=== PATIENT | male | born 1955 | race African-American/Black ===

== ENCOUNTER 2016-12-20 09:54 | Outpatient (CLI) ==
[2016-10-04 11:38] VITALS: BMI 21.1
[2016-12-20 10:19] LABS: ADD URINE MICROSCOPIC NO; BILIRUBIN,URINE Negative (NEGATIVE); KETONES,URINE Trace (NEGATIVE); LEUKOCYTE ESTERASE ,URINE Negative (NEGATIVE); NITRITE,URINE Negative (NEGATIVE); PROTEIN,URINE Negative (NEGATIVE); URINE, BLOOD Negative (NEGATIVE)
== END 2016-12-20 09:55 | disposition home or self-care (01) ==
LOC: LAB 09:54
DX: R35.0 Frequency of micturition (principal)
CPT/HCPCS: 36415; 81001

== ENCOUNTER 2017-01-03 01:35 | Outpatient (CLI) ==
[2017-01-03 02:11] VITALS: BMI 21.7
== END 2017-01-03 01:36 ==
LOC: AMBL 01:35
PROVIDERS: ATTEND Family Medicine
DX: R41.82 Altered mental status, unspecified (principal); R00.0 Tachycardia, unspecified; R25.9 Unspecified abnormal involuntary movements; F10.10 Alcohol abuse, uncomplicated

== ENCOUNTER 2017-01-03 01:49 | Emergency (ER) ==
[2017-01-03] MEDS ORDERED: DEXTROSE 50%-WATER ABBOJECT ONE (02:04)
[2017-01-03 02:11] VITALS: BMI 21.7
[2017-01-03] MEDS ORDERED: DEXTROSE 50%-WATER ABBOJECT IVP ONE (02:11)
[2017-01-03 02:16] LABS: BASOPHILS % (AUTO) 0.3 % (0.0-3.0); HEMATOCRIT 42.1 % (42.0-52.0); HEMOGLOBIN 13.5 g/dl (14.0-18.0); IMMATURE GRANULOCYTE % (AUTO) 0.4 % (0.0-5.0); LYMPHOCYTES # (AUTO) 1.3 K/uL (0.60-3.4); LYMPHOCYTES % (AUTO) 8.2 (10.0-50.0); MEAN CORPUSCULAR HEMOGLOBIN 31.6 pg (27.0-31.0); MEAN CORPUSCULAR HGB CONC 32.1 (31.8-35.4); MEAN CORPUSCULAR VOLUME 98.6 fl (80.0-94.0); MONOCYTES # (AUTO) 0.9 K/uL (0.4-2.0); MONOCYTES % (AUTO) 5.4 (0-10); NEUTROPHILS # (AUTO) 13.6 K/ul (2.0-6.9); NEUTROPHILS % (AUTO) 85.7; PLATELET COUNT 360 10^3/uL (140-440); RED BLOOD COUNT 4.27 10^6/ul (4.70-6.10); WHITE BLOOD COUNT 15.82 K/ul (4.2-10.2)
[2017-01-03] MEDS ORDERED: THIAMINE ONE (02:20)
[2017-01-03] MEDS ORDERED: FOLIC ACID ONE (02:22)
[2017-01-03] MEDS ORDERED: INFUVITE ADULT IV ONE (02:23)
[2017-01-03] MEDS ORDERED: THIAMINE 100 MG, INFUVITE ADULT 10 ML, FOLIC ACID 1 MG in DEXTROSE 5%-NS IV SOLUTION 1,... IV SCH (02:30)
[2017-01-03 02:54] LABS: ABG BASE EXCESS -24 (-2.0-2.0); ABG HCO3 6.2 (22.0-26.0); ABG PCO2 22.6 mmHg (35-45); ABG PH 7.047 (7.35-7.45); ABG TCO2 7 (22.0-28.0)
--- NOTE | 2017-01-03 02:56 | CT ---
EXAM: CT brain without contrast HISTORY: Seizure activity TECHNIQUE: CT of the brain without intravenous contrast FINDINGS: There is no acute hemorrhage midline shift or mass effect. No hydrocephalus or abnormal extra-axial fluid collection. Generalized involutional atrophy, moderate. Chronic microvascular ch anges of the white matter tracts, moderate. No acute large vessel territorial infarct is seen. The bony cranium appears normal. The visualized paranasal sinuses are clear. Soft tissues without signi ficant abnormality. IMPRESSION: 1. Chronic changes as described. No acute intracranial abnormality is seen.
[2017-01-03 03:14] LABS: ALBUMIN 3.7 g/dL (3.4-5.0); ALBUMIN/GLOBULIN RATIO 0.93; ANION GAP 35.7; BILIRUBIN,TOTAL 0.42 mg/dL (0.00-1.20); BUN/CREATININE RATIO 15.29; CALCIUM 8.7 mg/dL (8.2-10.2); CREATININE 1.7 mg/dL (0.60-1.10); POTASSIUM 3.7 mmol/L (3.5-5.1); TOTAL PROTEIN 7.7 g/dL (5.8-8.1)
[2017-01-03] MEDS ORDERED: SODIUM CHLORIDE 1,000 ML IV STA (03:21)
[2017-01-03 03:27] LABS: COCAIN SCREEN,URINE POSITIVE (NEGATIVE)
[2017-01-03 03:45] LABS: TROPONIN I 0.02 ng/ml (0.0000-0.4000)
[2017-01-03 05:19] LABS: ABG BASE EXCESS -13 (-2.0-2.0); ABG HCO3 13.2 (22.0-26.0); ABG PCO2 24.6 mmHg (35-45); ABG PH 7.338 (7.35-7.45); ABG TCO2 14 (22.0-28.0)
[2017-01-03 05:30] VITALS: TEMP 99.6
--- NOTE | 2017-01-03 05:32 | ED.PDOC ---
General ED Provider: Dr. TAYLOR BRIGGS-ER Chief Complaint: Alcohol Intoxication Stated Complaint: jimena been drinking all day and i didnt eat Time Seen by Physician: 01:55 Mode of Arrival: Ambulance Information Source: Patient, EMT Exam Limitations: No limitations Primary Care Provider: GIOVANNI SIDHU Nursing and Triage Documentation Reviewed and Agree: Yes Neurological Complaint Exam - Seizure Complaint/Exam Onset/Duration: one hour Symptoms Are: Resolved Episodes Lasting: Minutes Failed to Regain Consciousness: No Severity: Self-limited Location: All extremities Character: Generalized, Tonic-clonic Aggravating: Reports: Alcohol ingestion Alleviating: Reports: None Associated Signs and Symptoms: Denies: Anxiety, Emotional distress, Impaired speech, Bladder incontinence, Bowel incontinence, Trauma, Illness, Vomiting, Lethargy, Apnea SAH Risk Factors: Reports: None Meningitis Risk Factors: Reports: None SDH Risk Factors: Reports: None Related Surgical History: Reports: None Carotid Bruit Present: No Cephalohematoma Present: No Tongue Bitten: No Neck Pain Present: No Glascow Coma Scale (see protocol): 15 Nystagmus Present: No Gag Reflex Present: Yes Speech: Present: Normal Findings Aphasia: Present: None Meningeal Signs Positive: No Focal Weakness: Present: None Focal Sensory Loss: Reports: None Gait: Normal [id number]: Normal Findings Pronator Drift: Present: None Romberg Test Positive: No Babinski Sign: Negative Right, Negative Left Heel to Toe Normal: Yes Signs of Injury: Present: Normal findings Differential Diagnoses: Metabolic Disorder, Other Review of Systems - Review Of Systems Constitutional: Reports: No symptoms Eyes: Reports: No symptoms Ears, Nose, Mouth, Throat: Reports: No symptoms Respiratory: Reports: No symptoms Cardiac: Reports: No symptoms GI: Reports: No symptoms : Reports: No symptoms Musculoskeletal: Reports: No symptoms Skin: Reports: No symptoms Neurological: Reports: No symptoms Endocrine: Reports: No symptoms Hematologic/Lymphatic: Reports: No symptoms All Other Systems: Reviewed and Negative Past Medical History - Past Medical History Previously Healthy: Yes Endocrine: Reports: None Cardiovascular: Reports: None Respiratory: Reports: COPD Hematological: Reports: None Gastrointestinal: Reports: GERD Genitourinary: Reports: None Neuro/Psych: Reports: None Musculoskeletal: Reports: Joint Pain Cancer: Reports: None Other Pertinent Past Medical History: Alcoholism drinks 1/2 pint every 3 days. - Surgical History General Surgical History: Reports: None - Family History Family History: Reports: None - Social History Smoking Status: Current every day smoker, Heavy tobacco smoker Hx Substance Use: Yes (MARIJUANA) Alcohol Screening: Heavy Lives: With family - Immunizations Tetanus Shot up to Date: No Physical Exam - Physical Exam Appearance: Well-appearing, No pain distress, Well-nourished Eyes: JEREMY ENT: Ears normal, Nose normal, Oropharynx normal Neck: Supple Respiratory: Airway patent Cardiovascular: RRR, Pulses normal, No rub, No murmur GI/: Soft, Nontender, No masses, Bowel sounds normal, No Organomegaly Musculoskeletal: Normal strength, ROM intact, No edema, No calf tenderness Skin: Warm, Dry, Normal color Neurological: Sensation intact, Motor intact, Reflexes intact, Cranial nerves intact, Alert, Oriented Psychiatric: Affect appropriate, Mood appropriate Interpretation - Radiology Interpretation Radiology Interpretation By: Radiologist Radiology Results: Negative Exam Interpreted: CT Scan - EKG Interpretation Time of EKG #1: 05:33 Rate: Normal Rhythm: Sinus Ectopy: None [place]: NL ST Segment: Normal Interpretation: nsr Re-Evaluation - Re-Evaluation Time of Re-Evaluation: 05:53 Status: Improved (sitting up and drinking water--alert and oriented) Vital Signs Stable: Yes Pain Level: 0 Appearance: NAD Lungs: Clear Skin: Warm and Dry Neuro: Alert and Oriented X3 CV: RRR Critical Care Note - Critical Care Note Total Time (mins): 0 Course - Course Hematology/Chemistry: 01/03/17 02:00 01/03/17 02:00 Orders, Labs, Meds: Lab Review 01/03/17 01/03/17 01/03/17 02:00 02:09 02:45 WBC 15.82 H RBC 4.27 L Hgb 13.5 L Hct 42.1 MCV 98.6 H MCH 31.6 H MCHC 32.1 RDW Coeff of Ti 15.5 H Plt Count 360 Immature Gran % (Auto) 0.4 Neut % (Auto) 85.7 Lymph % (Auto) 8.2 L Peach % (Auto) 5.4 Eos % (Auto) 0.0 Baso % (Auto) 0.3 Immature Gran # (Auto) 0.1 Neut # 13.6 H Lymph # 1.3 Peach # 0.9 Eos # 0.0 Baso # 0.0 D-Dimer 0.51 Puncture Site Rb O2 Saturation 90.0 L ABG pH 7.047 L* ABG pCO2 22.6 L ABG pO2 81.0 L ABG HCO3 6.2 L ABG Total CO2 7 L ABG Base Excess -24 L Lawrence Test + FiO2 % 21.0 Sodium 138 Potassium 3.7 Chloride 100 Carbon Dioxide 6 L* Anion Gap 35.7 BUN 26 H Creatinine 1.70 H Estimated GFR (MDRD) 50.00 BUN/Creatinine Ratio 15.29 Glucose 125 H Calcium 8.7 Total Bilirubin 0.42 AST 50 H ALT 32 Alkaline Phosphatase 68 Total Creatine Kinase 168 CK-MB (CK-2) 4.0 H CK-MB (CK-2) % 2.79167 Troponin I 0.0200 Total Protein 7.7 Albumin 3.7 Globulin 4.0 Albumin/Globulin Ratio 0.93 Urine Color Urine Clarity Urine pH Ur Specific [place] Urine Protein Urine Glucose (UA) Urine Ketones Urine Blood Urine Nitrite Urine Bilirubin Urine Urobilinogen Ur Leukocyte Esterase Urine Microscopic RBC Ur Squamous Epith Cells Granular Casts Urine Opiates Screen Ur Oxycodone Screen Urine Methadone Screen Ur Propoxyphene Screen Ur Barbiturates Screen U Tricyclic Antidepress Ur Phencyclidine Scrn Ur Amphetamine Screen U Methamphetamines Scrn U Benzodiazepines Scrn Urine Cocaine Screen U Cannabinoids Screen Plasma/Serum Alcohol 97.5 H 01/03/17 01/03/17 01/03/17 02:52 03:41 05:35 WBC RBC Hgb Hct MCV MCH MCHC RDW Coeff of Ti Plt Count Immature Gran % (Auto) Neut % (Auto) Lymph % (Auto) Peach % (Auto) Eos % (Auto) Baso % (Auto) Immature Gran # (Auto) Neut # Lymph # Peach # Eos # Baso # D-Dimer Puncture Site Lb O2 Saturation 93.0 L ABG pH 7.338 L ABG pCO2 24.6 L ABG pO2 71.0 L ABG HCO3 13.2 L ABG Total CO2 14 L ABG Base Excess -13 L Lawrence Test + FiO2 % 21.0 Sodium Potassium Chloride Carbon Dioxide Anion Gap BUN Creatinine Estimated GFR (MDRD) BUN/Creatinine Ratio Glucose Calcium Total Bilirubin AST ALT Alkaline Phosphatase Total Creatine Kinase CK-MB (CK-2) CK-MB (CK-2) % Troponin I Total Protein Albumin Globulin Albumin/Globulin Ratio Urine Color Yellow Urine Clarity Clear Urine pH 5.0 Ur Specific [place] >=1.030 Urine Protein 1+ Urine Glucose (UA) Negative Urine Ketones 2+ Urine Blood 1+ Urine Nitrite Negative Urine Bilirubin Negative Urine Urobilinogen 0.2 Ur Leukocyte Esterase Negative Urine Microscopic RBC 2-5 Ur Squamous Epith Cells 0-2 Granular Casts 2-5 Urine Opiates Screen Negative Ur Oxycodone Screen Negative Urine Methadone Screen Negative Ur Propoxyphene Screen Negative Ur Barbiturates Screen Negative U Tricyclic Antidepress Negative Ur Phencyclidine Scrn Negative Ur Amphetamine Screen Negative U Methamphetamines Scrn Negative U Benzodiazepines Scrn Negative Urine Cocaine Screen Positive U Cannabinoids Screen Negative Plasma/Serum Alcohol Orders Category Date Time Status ABG DRAW REQUEST Stat CARDIO 01/03/17 02:10 Completed ABG DRAW REQUEST Timed CARDIO 01/03/17 05:00 Completed EKG-(ED ONLY) Stat CARDIO 01/03/17 02:10 Completed ED IV/MEDIPORT/POWERPORT .ONCE EMERGENCY 01/03/17 02:11 Active ABG Stat LAB 01/03/17 02:09 Completed ARTERIAL BLOOD GAS [ABG] Stat LAB 01/03/17 03:41 Completed CBC W/ AUTO DIFF Stat LAB 01/03/17 02:00 Completed COMPREHENSIVE METABOLIC PANEL Stat LAB 01/03/17 02:00 Completed CREATINE KINASE Stat LAB 01/03/17 02:00 Completed D-DIMER Stat LAB 01/03/17 02:45 Completed ETOH LEVEL [BLOOD ALCOHOL] Stat LAB 01/03/17 02:00 Completed TROPONIN I Stat LAB 01/03/17 02:00 Completed URINALYSIS C & S IF INDICATED Stat LAB 01/03/17 05:35 Completed URINE DRUG SCREEN (RAPID FOR ED) [DRUG SCREEN, URINE, LAB 01/03/17 02:52 Completed RAPID] Stat 0.9 % Sodium Chloride [Saline Flush] MEDS 01/03/17 02:11 Ordered 1 syr IVF PRN PRN Dextrose 5 % and 0.9 % NaCl [Dextrose 5%-Ns IV Solution MEDS 01/03/17 02:30 Discontinued ] 1,000 ml Vitamin B-1 Inj [Thiamine] 100 mg Mvi, Adult No.1 with Vit K [Infuvite Adult] 10 ml Folic Acid 1 mg IV 100 mls/hr Dextrose 50 % in Water [Dextrose 50%-Water Abboject] MEDS 01/03/17 02:04 Discontinued 50 ml .ROUTE .STK-MED ONE Dextrose 50 % in Water [Dextrose 50%-Water Abboject] MEDS 01/03/17 02:11 Discontinued 50 ml IVP ONCE ONE Folic Acid MEDS 01/03/17 02:22 Discontinued 5 mg .ROUTE .STK-MED ONE Mvi, Adult No.1 with Vit K [Infuvite Adult] MEDS 01/03/17 02:23 Discontinued 10 ml IV .STK-MED ONE Sodium Chloride 0.9% [Sodium Chloride] 1,000 ml MEDS 01/03/17 03:21 Active IV 125 mls/hr Vitamin B-1 Inj [Thiamine] MEDS 01/03/17 02:20 Discontinued 200 mg .ROUTE .STK-MED ONE CT HEAD W/O CONTRAST Stat RADS 01/03/17 02:10 Completed CXR [CHEST, 1V AP ONLY] Stat RADS 01/03/17 05:29 Taken Medications Generic Name Dose Route Start Last Admin Trade Name Freq PRN Reason Stop Dose Admin Sodium Chloride 1,000 mls @ 125 mls/hr 01/03/17 03:21 Sodium Chloride IV 01/03/17 11:20 .Q8H STA Sodium Chloride 1 syr 01/03/17 02:11 Saline Flush IVF PRN PRN To flush IV Discontinued Medications Generic Name Dose Route Start Last Admin Trade Name Freq PRN Reason Stop Dose Admin Dextrose 50 ml 01/03/17 02:11 01/03/17 02:00 Dextrose 50%-Water Abboject IVP 01/03/17 02:12 50 ml ONCE ONE Administration Thiamine HCl 100 mg/ 1,011.2 mls @ 100 mls/hr 01/03/17 02:30 01/03/17 02:46 Multivitamins/Minerals 10 ml/ IV 100 mls/hr Folic Acid 1 mg/ Dextrose/ .Q10H7M JEREMIAH Administration Sodium Chloride Vital Signs: Temp Pulse Resp BP Pulse Ox 01/03/17 05:51 116 H 20 139/82 96 01/03/17 05:30 99.6 F 01/03/17 01:54 97.7 F 120 H 112 H 121/80 99 Departure - Departure Time of Disposition: 05:53 Disposition: HOME SELF-CARE Discharge Problem: Hypoglycemia Instructions: Non-diabetic Hypoglycemia (ED) Condition: Stable Pt referred to PMD for follow-up: Yes Additional Instructions: eat regular meals--stop etoh--return prn Allergies/Adverse Reactions: Allergies No Known Allergies Allergy (Verified 10/04/16 11:32) Home Medications: Ambulatory Orders Sucralfate [Carafate] 1 gm PO ACHS #40 tablet 05/01/15 Lansoprazole [Prevacid] 30 mg PO DAILY 10/30/15 Albuterol Sulfate [Proair Hfa] 2 puff IH Q4H 10/04/16 Hydrocodone Bit/Acetaminophen [Pender 5-325] 1 each PO ONCE PRN #10 tablet Indomethacin [Indocin] 25 mg PO TIDWM #20 capsule 10/04/16 Ranitidine HCl [Zantac] 150 mg PO BIDAC 10/04/16 Disposition Discussed With: Patient
[2017-01-03 05:45] LABS: BILIRUBIN,URINE Negative (NEGATIVE); KETONES,URINE 2+ (NEGATIVE); LEUKOCYTE ESTERASE ,URINE Negative (NEGATIVE); NITRITE,URINE Negative (NEGATIVE); PROTEIN,URINE 1+ (NEGATIVE); URINE, BLOOD 1+ (NEGATIVE)
[2017-01-03 05:48] LABS: ADD URINE MICROSCOPIC YES
[2017-01-03 05:52] VITALS: BP 139/82
[2017-01-03] MEDS ORDERED: TYLENOL PO STA (06:50)
--- NOTE | 2017-01-03 07:03 | DI ---
Exam: Chest one-view History: Leukocytosis FINDINGS: Normal cardiomediastinal contours. Normal pulmonary vasculature. No infiltrative opacit ies. No acute chest wall abnormality. Impression: No acute cardiopulmonary disease.
== END 2017-01-03 07:06 | disposition home or self-care (01) ==
LOC: ED 01:49
DX: E16.2 Hypoglycemia, unspecified (principal); F10.129 Alcohol abuse with intoxication, unspecified; F17.210 Nicotine dependence, cigarettes, uncomplicated; Z79.899 Other long term (current) drug therapy
CPT/HCPCS: 36415; 80053; 80306; 80307; 81001; 82550; 82553; 82803; 84484; 85025; 85379; 93005; 93010; 96361; 96374; 96375; 99283; 99284

== ENCOUNTER 2017-01-28 10:30 | Emergency (ER) ==
[2017-01-28 10:38] VITALS: BP 126/79; TEMP 97.4; BMI 22.0
--- NOTE | 2017-01-28 10:56 | ED.PDOC ---
General ED Provider: Dr. VINH MARINA JR Chief Complaint: Extremity Swelling/Pain Stated Complaint: complains of pain and swelling to left knee. denies injury. states he has arthritis in it and needs something for pain [End]97.4 108 18 94% 126/79 08/10 Time Seen by Physician: 10:45 Mode of Arrival: Walk-In Information Source: Patient Exam Limitations: No limitations Primary Care Provider: GIOVANNI SIDHU Nursing and Triage Documentation Reviewed and Agree: No Review of Systems - Review Of Systems Constitutional: Reports: No symptoms Eyes: Reports: No symptoms Ears, Nose, Mouth, Throat: Reports: No symptoms Respiratory: Reports: No symptoms Cardiac: Reports: No symptoms GI: Reports: No symptoms : Reports: No symptoms Musculoskeletal: Reports: Joint pain Skin: Reports: No symptoms Neurological: Reports: No symptoms Endocrine: Reports: No symptoms Hematologic/Lymphatic: Reports: No symptoms All Other Systems: Other Past Medical History - Past Medical History Previously Healthy: Yes Endocrine: Reports: None Cardiovascular: Reports: Hypertension Respiratory: Reports: COPD Hematological: Reports: None Gastrointestinal: Reports: GERD Genitourinary: Reports: None Neuro/Psych: Reports: TIA Musculoskeletal: Reports: Arthritis, Joint Pain (oa) Cancer: Reports: None Other Pertinent Past Medical History: Alcoholism drinks 1/2 pint every 3 days. - Surgical History General Surgical History: Reports: Orthopedic ( right knee 2015) - Family History Family History: Reports: None - Social History Smoking Status: Current every day smoker, Heavy tobacco smoker Hx Substance Use: Yes (MARIJUANA) Alcohol Screening: Heavy Physical Exam - Physical Exam Appearance: Well-appearing, Thin Pain Distress: Moderate Eyes: JEREMY, EOMI, Conjunctiva clear ENT: Ears normal, Nose normal, Oropharynx normal Neck: Supple Respiratory: Airway patent, Breath sounds clear, Breath sounds equal, Respirations nonlabored Cardiovascular: RRR, Pulses normal, No rub, No murmur GI/: Soft, Nontender, No masses, Bowel sounds normal, No Organomegaly Musculoskeletal: Normal strength, ROM intact, No edema, No calf tenderness Skin: Warm, Dry, Normal color Neurological: Sensation intact, Motor intact, Reflexes intact, Cranial nerves intact, Alert, Oriented Psychiatric: Affect appropriate, Mood appropriate Critical Care Note - Critical Care Note Total Time (mins): 0 Course - Course Vital Signs: Temp Pulse Resp BP Pulse Ox 01/28/17 10:30 97.4 F L 108 H 18 126/79 94 L Departure - Departure Time of Disposition: 10:57 Disposition: HOME SELF-CARE Discharge Problem: Osteoarthritis of left knee Qualifiers: Osteoarthritis type: primary Qualifier Code: (M17.12) Unilateral primary osteoarthritis, left knee Instructions: Swollen Knee Joint (ED), Knee Pain (ED) Condition: Good Pt referred to PMD for follow-up: Yes Additional Instructions: recommend reevaluation by orthopedics follow up PMD for consultation no evidence of infection return if red increased swelling increased pain or fever over 101.0 Allergies/Adverse Reactions: Allergies No Known Allergies Allergy (Verified 01/28/17 10:36) Home Medications: Ambulatory Orders Sucralfate [Carafate] 1 gm PO ACHS #40 tablet 05/01/15 Lansoprazole [Prevacid] 30 mg PO DAILY 10/30/15 Albuterol Sulfate [Proair Hfa] 2 puff IH Q4H 10/04/16 Indomethacin [Indocin] 25 mg PO TIDWM #20 capsule 10/04/16 Ranitidine HCl [Zantac] 150 mg PO BIDAC 10/04/16 Hydrocodone Bit/Acetaminophen [Prosper 5-325] 1 - 2 tab PO Q6HR PRN #12 tablet
== END 2017-01-28 11:04 | disposition home or self-care (01) ==
LOC: ED 10:30
DX: M17.12 Unilateral primary osteoarthritis, left knee (principal); F17.210 Nicotine dependence, cigarettes, uncomplicated
CPT/HCPCS: 99282

== ENCOUNTER 2017-02-07 12:57 | Emergency (ER) ==
[2017-02-07 13:03] VITALS: TEMP 101.2; BMI 23.7
--- NOTE | 2017-02-07 13:10 | ED.PDOC ---
General ED Provider: Dr. AARTI STANTON Chief Complaint: Cough Stated Complaint: Cough, fever, nausea, vomiting; out of his norco - abdominal pain Time Seen by Physician: 13:00 Mode of Arrival: Ambulance Information Source: Patient Primary Care Provider: GIOVANNI SIDHU Nursing and Triage Documentation Reviewed and Agree: Yes Review of Systems - Review Of Systems Constitutional: Reports: Chills, Fever, Malaise Ears, Nose, Mouth, Throat: Reports: Nose discharge (congestion) Respiratory: Reports: Cough Cardiac: Reports: No symptoms GI: Reports: Nausea All Other Systems: Reviewed and Negative Past Medical History - Past Medical History Previously Healthy: Yes Endocrine: Reports: None Cardiovascular: Reports: Hypertension Respiratory: Reports: COPD Hematological: Reports: None Gastrointestinal: Reports: GERD Genitourinary: Reports: None Neuro/Psych: Reports: TIA Musculoskeletal: Reports: Arthritis, Joint Pain (oa) Cancer: Reports: None Other Pertinent Past Medical History: Alcoholism drinks 1/2 pint every 3 days. - Surgical History General Surgical History: Reports: Orthopedic ( right knee 2015) - Family History Family History: Reports: None - Social History Smoking Status: Current every day smoker, Heavy tobacco smoker Hx Substance Use: Yes (MARIJUANA) Alcohol Screening: Heavy Physical Exam - Physical Exam Appearance: Ill-appearing Ill-appearing: Mild Eyes: JEREMY, EOMI ENT: Oropharynx normal Neck: Supple Respiratory: Airway patent, Breath sounds clear, Breath sounds equal, Respirations nonlabored Cardiovascular: RRR, Pulses normal GI/: Tender (Epigastric tenderness to mild palpation) Skin: Warm, Dry, Normal color Neurological: Alert, Oriented Psychiatric: Affect appropriate, Mood appropriate Interpretation - Radiology Interpretation Radiology Interpretation By: Radiologist Radiology Results: No acute changes Exam Interpreted: Portable CXR Radiology Interpretation By: Radiologist Radiology Results: No acute changes Critical Care Note - Critical Care Note Total Time (mins): 25 Course - Course Hematology/Chemistry: 02/07/17 13:45 02/07/17 13:45 Orders, Labs, Meds: Lab Review 02/07/17 02/07/17 02/07/17 13:15 13:45 14:25 WBC 5.81 RBC 3.98 L Hgb 11.7 L Hct 36.3 L MCV 91.2 MCH 29.4 MCHC 32.2 RDW Coeff of Ti 14.7 Plt Count 335 Immature Gran % (Auto) 0.3 Neut % (Auto) 80.8 Lymph % (Auto) 10.8 Bee % (Auto) 6.7 Eos % (Auto) 0.7 Baso % (Auto) 0.7 Immature Gran # (Auto) 0.0 Neut # 4.7 Lymph # 0.6 Bee # 0.4 Eos # 0.0 Baso # 0.0 Sodium 138 Potassium 3.9 Chloride 101 Carbon Dioxide 26 Anion Gap 14.9 BUN 9 Creatinine 1.08 Estimated GFR (MDRD) 84.00 BUN/Creatinine Ratio 8.33 Glucose 89 Lactic Acid 13.6 Calcium 8.9 Total Bilirubin 0.65 AST 155 H ALT 118 H Alkaline Phosphatase 63 Total Protein 7.5 Albumin 3.6 Globulin 3.9 Albumin/Globulin Ratio 0.92 Procalcitonin < 0.05 Urine Color Yellow Urine Clarity Clear Urine pH 7.5 Ur Specific [place] 1.020 Urine Protein Trace Urine Glucose (UA) Negative Urine Ketones Negative Urine Blood Negative Urine Nitrite Negative Urine Bilirubin Negative Urine Urobilinogen 1.0 Ur Leukocyte Esterase Negative Ur Squamous Epith Cells 0-2 Influenza A (Rapid) Negative Influenza B (Rapid) Negative Orders Category Date Time Status IV ACCESS ONCE CARE 02/07/17 13:07 Active ED APPLY O2 .ONCE EMERGENCY 02/07/17 13:07 Active ED WARP SPINNER APPLIED .ONCE EMERGENCY 02/07/17 13:07 Active BLOOD CULTURE Stat LAB 02/07/17 13:45 Received CBC W/ AUTO DIFF Stat LAB 02/07/17 13:45 Completed COMPREHENSIVE METABOLIC PANEL Stat LAB 02/07/17 13:45 Completed LACTIC ACID Stat LAB 02/07/17 13:45 Completed MOLECULAR GROUP A STREP Stat LAB 02/07/17 13:15 Results PROCALCITONIN Stat LAB 02/07/17 13:45 Completed RAPID FLU A/B Stat LAB 02/07/17 13:15 Completed RAPID STREP SCREEN [STREP SCREEN] Stat LAB 02/07/17 13:15 Results URINALYSIS C & S IF INDICATED Stat LAB 02/07/17 14:25 Completed Sodium Chloride 0.9% [Sodium Chloride] 1,000 ml MEDS 02/07/17 14:26 Discontinued IV BOLUS CHEST, 1V AP ONLY Stat RADS 02/07/17 13:06 Completed Medications Discontinued Medications Generic Name Dose Route Start Last Admin Trade Name Freq PRN Reason Stop Dose Admin Sodium Chloride 1,000 mls @ 1,000 mls/hr 02/07/17 14:26 02/07/17 14:36 Sodium Chloride IV 02/07/17 15:25 100 mls/hr BOLUS STA Administration Rapid strep reported as negative Vital Signs: Temp Pulse Resp BP Pulse Ox 02/07/17 12:58 101.2 F H 103 H 20 154/102 H 96 Departure - Departure Time of Disposition: 15:56 Disposition: HOME SELF-CARE Discharge Problem: Gastritis Qualifiers: Gastritis type: unspecified gastritis Chronicity: acute Gastritis bleeding: without bleeding Qualifier Code: (K29.00) Acute gastritis without bleeding Instructions: Gastritis (ED) Condition: Good Pt referred to PMD for follow-up: Yes (Call for appointment) Additional Instructions: Follow up with primary care; call for appointment. Use Zofran for nausea as needed and as prescribed. Allergies/Adverse Reactions: Allergies No Known Allergies Allergy (Verified 02/07/17 13:06) Home Medications: Ambulatory Orders Sucralfate [Carafate] 1 gm PO ACHS #40 tablet 05/01/15 Lansoprazole [Prevacid] 30 mg PO DAILY 10/30/15 Albuterol Sulfate [Proair Hfa] 2 puff IH Q4H 10/04/16 Ranitidine HCl [Zantac] 150 mg PO BIDAC 10/04/16 Amlodipine Besylate [Norvasc] 10 mg PO DAILY 02/07/17 Disposition Discussed With: Patient
[2017-02-07 14:09] LABS: BASOPHILS % (AUTO) 0.7 % (0.0-3.0); EOSINOPHILS % (AUTO) 0.7 % (0.0-7.0); HEMATOCRIT 36.3 % (42.0-52.0); HEMOGLOBIN 11.7 g/dl (14.0-18.0); IMMATURE GRANULOCYTE % (AUTO) 0.3 % (0.0-5.0); LYMPHOCYTES # (AUTO) 0.6 K/uL (0.60-3.4); LYMPHOCYTES % (AUTO) 10.8 (10.0-50.0); MEAN CORPUSCULAR HEMOGLOBIN 29.4 pg (27.0-31.0); MEAN CORPUSCULAR HGB CONC 32.2 (31.8-35.4); MEAN CORPUSCULAR VOLUME 91.2 fl (80.0-94.0); MONOCYTES # (AUTO) 0.4 K/uL (0.4-2.0); MONOCYTES % (AUTO) 6.7 (0-10); NEUTROPHILS # (AUTO) 4.7 K/ul (2.0-6.9); NEUTROPHILS % (AUTO) 80.8; PLATELET COUNT 335 10^3/uL (140-440); RED BLOOD COUNT 3.98 10^6/ul (4.70-6.10); WHITE BLOOD COUNT 5.81 K/ul (4.2-10.2)
[2017-02-07 14:11] LABS: ALBUMIN 3.6 g/dL (3.4-5.0); ALBUMIN/GLOBULIN RATIO 0.92; ANION GAP 14.9; BILIRUBIN,TOTAL 0.65 mg/dL (0.00-1.20); BUN/CREATININE RATIO 8.33; CALCIUM 8.9 mg/dL (8.2-10.2); CREATININE 1.08 mg/dL (0.60-1.10); POTASSIUM 3.9 mmol/L (3.5-5.1); TOTAL PROTEIN 7.5 g/dL (5.8-8.1)
[2017-02-07 14:14] LABS: FLU INTERNAL QC INTERNAL QC VALID; RAPID FLU A NEGATIVE (NEGATIVE); RAPID FLU B NEGATIVE (NEGATIVE)
--- NOTE | 2017-02-07 14:28 | DI ---
EXAM: Single portable view of the chest HISTORY: Cough. COMPARISON: Chest x-ray 01/03/2017 FINDINGS: Cardiomediastinal silhouette is normal. There is no pneumothorax or pleural effusion. The re is no acute consolidation, nodule or mass. The osseous structures are unremarkable. IMPRESSION: No acute cardiopulmonary process.
[2017-02-07] MEDS: SODIUM CHLORIDE 1,000 ML IV STA (14:36)
[2017-02-07 14:57] LABS: BILIRUBIN,URINE Negative (NEGATIVE); KETONES,URINE Negative (NEGATIVE); LEUKOCYTE ESTERASE ,URINE Negative (NEGATIVE); NITRITE,URINE Negative (NEGATIVE); PH,URINE 7.5 (5-9); PROTEIN,URINE Trace (NEGATIVE); URINE, BLOOD Negative (NEGATIVE)
[2017-02-07 15:07] LABS: ADD URINE MICROSCOPIC YES
[2017-02-07 16:19] VITALS: BP 146/85
== END 2017-02-07 16:16 | disposition home or self-care (01) ==
LOC: ED 12:57
DX: K29.00 Acute gastritis without bleeding (principal); F17.210 Nicotine dependence, cigarettes, uncomplicated; Z79.899 Other long term (current) drug therapy
CPT/HCPCS: 36415; 80053; 81001; 83605; 84145; 85025; 87040; 87651; 87804; 87880; 96360; 99283

== ENCOUNTER 2017-02-09 13:56 | Outpatient (CLI) ==
[2017-02-09 14:10] VITALS: BMI 22.4
== END 2017-02-09 13:57 | disposition home or self-care (01) ==
LOC: AMBL 13:56
PROVIDERS: ATTEND Internal Medicine
DX: R06.02 Shortness of breath (principal); R19.7 Diarrhea, unspecified; R68.89 Other general symptoms and signs; R50.9 Fever, unspecified; R52 Pain, unspecified; R00.0 Tachycardia, unspecified

== ENCOUNTER 2017-02-09 13:59 | Emergency (ER) ==
[2017-02-09 14:10] VITALS: BP 139/87; TEMP 99.7; BMI 22.4
--- NOTE | 2017-02-09 14:49 | CT ---
EXAM: CT of the chest without contrast History: Cough and fever. Comparison: Chest radiograph 02/07/2017, CT abdomen pelvis 08/03/2016, CT abdomen pelvis 02/09/2017 Technique: Multiplanar CT images through the thorax were obtained without the administration of IV contrast Findings: Heart size is normal. Trace pericardial fluid. Coronary calcifications. Great vessels are grossly unremarkable on this noncontrast exam. No pathologically enlarged axillary lymph nodes. 1.2 cm pr etracheal mediastinal lymph node. Evaluation for hilar lymph nodes is limited due to the lack of co ntrast administration. Moderate centrilobular and paraseptal emphysema. Diffuse bronchial wall thickening. 1 cm irregular nodular density within the right upper lobe axial image 20. A few other scattered smaller apical ple ural based nodular densities are seen. For details in the upper abdomen, please see dedicated CT abdomen pelvis done on the same day. Mode rate hiatal hernia and circumferential wall thickening of the distal esophagus. Impression: 1. Mild diffuse bronchial wall thickening most likely infectious or inflammatory etiology. No conso lidated pneumonia. 2. Irregular apical nodular densities measuring up to 1 cm on the right could be due to scarring bu t cannot exclude neoplasia and recommend follow-up chest CT in 3-6 months. 3. Emphysema. 4. Moderate hiatal hernia and circumferential wall thickening of the distal esophagus could be due to esophagitis or esophageal neoplasm and further evaluation is recommended. 5. Coronary artery disease. 6. Nonspecific enlarged pretracheal mediastinal lymph node could be infectious/inflammatory or neop lastic. Follow-up recommended.
[2017-02-09 14:50] LABS: BASOPHILS % (AUTO) 0.1 % (0.0-3.0); HEMATOCRIT 37.8 % (42.0-52.0); HEMOGLOBIN 12.1 g/dl (14.0-18.0); IMMATURE GRANULOCYTE % (AUTO) 0.5 % (0.0-5.0); LYMPHOCYTES # (AUTO) 1.3 K/uL (0.60-3.4); LYMPHOCYTES % (AUTO) 15.4 (10.0-50.0); MEAN CORPUSCULAR HEMOGLOBIN 29.3 pg (27.0-31.0); MEAN CORPUSCULAR VOLUME 91.5 fl (80.0-94.0); MONOCYTES # (AUTO) 0.5 K/uL (0.4-2.0); MONOCYTES % (AUTO) 5.8 (0-10); NEUTROPHILS # (AUTO) 6.8 K/ul (2.0-6.9); NEUTROPHILS % (AUTO) 78.2; PLATELET COUNT 313 10^3/uL (140-440); RED BLOOD COUNT 4.13 10^6/ul (4.70-6.10); WHITE BLOOD COUNT 8.65 K/ul (4.2-10.2)
--- NOTE | 2017-02-09 14:53 | CT ---
EXAM: CT of the abdomen pelvis without contrast History: Abdominal pain and fever. Comparison: Chest CT 02/09/2017, CT abdomen pelvis 08/03/2016 Technique: Multiplanar CT images through the abdomen pelvis were obtained without the administratio n of IV contrast. Findings: For details in the lower lungs, please see dedicated chest CT done on the same day. Ther e is diffuse bronchial wall thickening. Hiatal hernia with wall thickening of the distal esophagus. No acute osseous abnormalities. No discrete gallstones identified by CT. Atherosclerotic vascular calcifications. No focal liver o r splenic lesions. No peripancreatic inflammation. Adrenal glands are unremarkable. No renal ston es and no hydronephrosis. Nondilated fluid filled loops of small bowel and fluid seen within the co jose. The appendix is not dilated or inflamed. No free air and no ascites. No bladder wall thicken ing. Prostatic calcifications. Impression: 1. Mild gastroenterocolitis. No bowel obstruction. 2. Hiatal hernia and wall thickening of the distal esophagus.
[2017-02-09 15:08] LABS: ABG BASE EXCESS -1 (-2.0-2.0); ABG PCO2 35.5 mmHg (35-45); ABG PH 7.412 (7.35-7.45)
[2017-02-09 15:09] LABS: BILIRUBIN,URINE 1+ (NEGATIVE); KETONES,URINE 1+ (NEGATIVE); LEUKOCYTE ESTERASE ,URINE Negative (NEGATIVE); NITRITE,URINE Negative (NEGATIVE); PH,URINE 5.5 (5-9); PROTEIN,URINE 2+ (NEGATIVE); URINE, BLOOD Trace-intact (NEGATIVE)
[2017-02-09 15:09] LABS: ABG HCO3 23 (22.0-26.0); ABG TCO2 24 (22.0-28.0)
[2017-02-09 15:11] LABS: ADD URINE MICROSCOPIC YES
[2017-02-09 15:14] LABS: FLU INTERNAL QC INTERNAL QC VALID; RAPID FLU A NEGATIVE (NEGATIVE); RAPID FLU B NEGATIVE (NEGATIVE)
[2017-02-09 15:28] LABS: ALANINE AMINOTRANSFERASE 57 U/L (12-78); ALBUMIN 3.7 g/dL (3.4-5.0); ALBUMIN/GLOBULIN RATIO 0.84; ALKALINE PHOSPHATASE 63 U/L (56-119); ANION GAP 16.5; ASPARTATE AMINO TRANSFERASE 50 U/L (15-37); BILIRUBIN,TOTAL 0.44 mg/dL (0.00-1.20); BLOOD UREA NITROGEN 10 mg/dL (7-18); BUN/CREATININE RATIO 7.14; CARBON DIOXIDE 23 mmol/L (23-31); CHLORIDE 98 mmol/L (98-107); CREATINE KINASE 156 U/L; GLUCOSE 87 mg/dL (82-115); POTASSIUM 3.5 mmol/L (3.5-5.1); SODIUM 134 mmol/L (136-145); TOTAL PROTEIN 8.1 g/dL (5.8-8.1)
[2017-02-09 15:32] LABS: CREATINE KINASE MB 0.7 ng/ml (0.0-3.6)
[2017-02-09] MEDS ORDERED: ZITHROMAX PO STA (15:44)
[2017-02-09] MEDS ORDERED: DECADRON 4 MG/ML SDV IM STA (15:47)
--- NOTE | 2017-02-09 15:49 | ED.PDOC ---
General ED Provider: Dr. GARY KATHLEEN Chief Complaint: Cough Stated Complaint: cough, flu like symptoms Time Seen by Physician: 14:00 Mode of Arrival: Walk-In Information Source: Patient Exam Limitations: No limitations Primary Care Provider: GIOVANNI SIDHU Nursing and Triage Documentation Reviewed and Agree: Yes Respiratory Complaint Exam - Respiratory Complaint/Exam Onset/Duration: 3 days Symptoms Are: Resolved Timing: Intermittent Initial Severity: Moderate Current Severity: Mild Location: Throat, Chest Character: Reports: Non-productive cough Aggravating: Reports: None Alleviating: Reports: Spontaneous resolution Associated Signs and Symptoms: Reports: Fever, Chills, Nasal congestion, Sore throat, Decreased oral intake. Denies: Rapid breathing, Dyspnea, Chest pain, Pleuritic chest pain, Wheezing, Hemoptysis, Dizziness, Calf pain, Calf swelling , Edema, URI, Hoarseness, Sinus discomfort, Vomiting, Weight loss, Increased thirst, Increased appetite, Increased urination Related History: Reports: Similar episode Related Surgical History: Reports: None Pulmonary Embolism Risk Factors: None Cardiac Risk Factors: Reports: Hypertension Review of Systems - Review Of Systems Constitutional: Reports: Chills, Malaise Eyes: Reports: No symptoms Ears, Nose, Mouth, Throat: Reports: No symptoms Respiratory: Reports: Cough Cardiac: Reports: No symptoms GI: Reports: Abdominal pain : Reports: No symptoms Musculoskeletal: Reports: No symptoms Skin: Reports: No symptoms Neurological: Reports: No symptoms Endocrine: Reports: No symptoms Hematologic/Lymphatic: Reports: No symptoms All Other Systems: Reviewed and Negative Past Medical History - Past Medical History Previously Healthy: Yes Endocrine: Reports: None Cardiovascular: Reports: Hypertension Respiratory: Reports: COPD Hematological: Reports: None Gastrointestinal: Reports: GERD Genitourinary: Reports: None Neuro/Psych: Reports: TIA Musculoskeletal: Reports: Arthritis, Joint Pain (oa) Cancer: Reports: None Other Pertinent Past Medical History: Alcoholism drinks 1/2 pint every 3 days. - Surgical History General Surgical History: Reports: Orthopedic ( right knee 2015) - Family History Family History: Reports: None - Social History Smoking Status: Current every day smoker, Heavy tobacco smoker Hx Substance Use: Yes (MARIJUANA) Alcohol Screening: Heavy - Immunizations Tetanus Shot up to Date: Yes Physical Exam - Physical Exam Appearance: Well-appearing, No pain distress, Well-nourished Eyes: JEREMY, EOMI, Conjunctiva clear ENT: Ears normal, Nose normal, Oropharynx normal Respiratory: Airway patent, Breath sounds clear, Breath sounds equal, Respirations nonlabored Cardiovascular: RRR, Pulses normal, No rub, No murmur GI/: Soft, Nontender, No masses, Bowel sounds normal, No Organomegaly Musculoskeletal: Normal strength, ROM intact, No edema, No calf tenderness Skin: Warm, Dry, Normal color Neurological: Sensation intact, Motor intact, Reflexes intact, Cranial nerves intact, Alert, Oriented Psychiatric: Affect appropriate, Mood appropriate Critical Care Note - Critical Care Note Total Time (mins): 0 Course - Course Hematology/Chemistry: 02/09/17 14:40 02/09/17 14:40 Orders, Labs, Meds: Lab Review 02/09/17 02/09/17 02/09/17 14:19 14:40 15:05 WBC 8.65 RBC 4.13 L Hgb 12.1 L Hct 37.8 L MCV 91.5 MCH 29.3 MCHC 32.0 RDW Coeff of Ti 14.6 Plt Count 313 Immature Gran % (Auto) 0.5 Neut % (Auto) 78.2 Lymph % (Auto) 15.4 [place] % (Auto) 5.8 Eos % (Auto) 0.0 Baso % (Auto) 0.1 Immature Gran # (Auto) 0.0 Neut # 6.8 Lymph # 1.3 [place] # 0.5 Eos # 0.0 Baso # 0.0 D-Dimer 0.50 Puncture Site Lb O2 Saturation 97.0 ABG pH 7.412 ABG pCO2 35.5 ABG pO2 74.0 L ABG HCO3 23 ABG Total CO2 24 ABG Base Excess -1 [place] Test + FiO2 % 21.0 Sodium 134 L Potassium 3.5 Chloride 98 Carbon Dioxide 23 Anion Gap 16.5 BUN 10 Creatinine 1.40 H Estimated GFR (MDRD) 62.00 BUN/Creatinine Ratio 7.14 Glucose 87 Lactic Acid 11.6 D Calcium 9.0 Total Bilirubin 0.44 AST 50 H D ALT 57 D Alkaline Phosphatase 63 Total Creatine Kinase 156 CK-MB (CK-2) 0.7 CK-MB (CK-2) % 0.82472 Troponin I < 0.0100 Total Protein 8.1 Albumin 3.7 Globulin 4.4 Albumin/Globulin Ratio 0.84 Urine Color Yellow Urine Clarity Clear Urine pH 5.5 Ur Specific [place] >=1.030 Urine Protein 2+ Urine Glucose (UA) Negative Urine Ketones 1+ Urine Blood Trace-intact Urine Nitrite Negative Urine Bilirubin 1+ Urine Urobilinogen 0.2 Ur Leukocyte Esterase Negative Urine Microscopic RBC 0-2 Ur Squamous Epith Cells Not present Influenza A (Rapid) Negative Influenza B (Rapid) Negative Orders Category Date Time Status ABG DRAW REQUEST Stat CARDIO 02/09/17 14:19 Completed EKG-(ED ONLY) Stat CARDIO 02/09/17 14:18 Completed ABG Stat LAB 02/09/17 14:19 Completed BLOOD CULTURE Stat LAB 02/09/17 14:40 Received CBC W/ AUTO DIFF Stat LAB 02/09/17 14:40 Completed COMPREHENSIVE METABOLIC PANEL Stat LAB 02/09/17 14:40 Completed CREATINE KINASE Stat LAB 02/09/17 14:40 Completed D-DIMER Stat LAB 02/09/17 14:40 Completed LACTIC ACID Stat LAB 02/09/17 14:40 Completed MOLECULAR GROUP A STREP Stat LAB 02/09/17 14:40 Results RAPID FLU A/B Stat LAB 02/09/17 14:40 Completed STREP SCREEN Stat LAB 02/09/17 14:40 Results TROPONIN I Stat LAB 02/09/17 14:40 Completed URINALYSIS C & S IF INDICATED Stat LAB 02/09/17 15:05 Completed Azithromycin [Zithromax] MEDS 02/09/17 15:44 Discontinued 500 mg PO ONCE STA Dexamethasone 4 mg/ml Inj [Decadron 4 mg/ml Sdv] MEDS 02/09/17 15:47 Discontinued 4 mg IM ONCE STA CT ABDOMEN/PELVIS WO CONTRAST Stat RADS 02/09/17 14:[address] CHEST W/O CONTRAST Stat RADS 02/09/17 14:17 Completed Medications Discontinued Medications Generic Name Dose Route Start Last Admin Trade Name Freq PRN Reason Stop Dose Admin Azithromycin 500 mg 02/09/17 15:44 Zithromax PO 02/09/17 15:45 ONCE STA Dexamethasone Sodium Phosphate 4 mg 02/09/17 15:47 Decadron 4 Mg/Ml Sdv IM 02/09/17 15:48 ONCE STA Vital Signs: Temp Pulse Resp BP Pulse Ox 02/09/17 13:59 99.7 F H 80 29 H 139/87 95 Departure - Departure Time of Disposition: 15:54 Disposition: HOME SELF-CARE Discharge Problem: Cough, Bronchitis, COPD (chronic obstructive pulmonary disease), Pulmonary nodule Instructions: COPD (Chronic Obstructive Pulmonary Disease) (ED), Emphysema (ED) , How Your Lungs Work (ED), Smoke Inhalation (ED), How to Quit Using Smokeless Tobacco (ED), Secondhand Smoke Exposure in Children (ED), How to Stop Smoking ( ED), Pulmonary Nodules (ED) Condition: Good Pt referred to PMD for follow-up: No Additional Instructions: Please call your Family Physician as soon as possible to schedule a follow-up appointment. you have spot on your lungs since you are smoke this can sometimes turn into cancer see your doctor cheng report is give to you to take to your doctor Allergies/Adverse Reactions: Allergies No Known Allergies Allergy (Verified 02/09/17 14:13) Home Medications: Ambulatory Orders Sucralfate [Carafate] 1 gm PO ACHS #40 tablet 05/01/15 Lansoprazole [Prevacid] 30 mg PO DAILY 10/30/15 Albuterol Sulfate [Proair Hfa] 2 puff IH Q4H 10/04/16 Ranitidine HCl [Zantac] 150 mg PO BIDAC 10/04/16 Amlodipine Besylate [Norvasc] 10 mg PO DAILY 02/07/17
== END 2017-02-09 16:00 | disposition home or self-care (01) ==
LOC: ED 13:59
DX: J44.9 Chronic obstructive pulmonary disease, unspecified (principal); R91.1 Solitary pulmonary nodule; R10.9 Unspecified abdominal pain; I10 Essential (primary) hypertension; F17.210 Nicotine dependence, cigarettes, uncomplicated; F10.20 Alcohol dependence, uncomplicated; Z79.899 Other long term (current) drug therapy; Z86.73 Personal history of transient ischemic attack (TIA), and cerebral infarction without residual deficits
CPT/HCPCS: 36415; 80053; 81001; 82550; 82553; 82803; 83605; 84484; 85025; 85379; 87040; 87651; 87804; 87880; 93005; 93010; 96372; 99283

== ENCOUNTER 2017-05-12 11:57 | Inpatient (IN) ==
[2017-05-12] MEDS ORDERED: MORPHINE 4 MG/ML SYRINGE IM STA (12:21)
[2017-05-12] MEDS ORDERED: ZOFRAN 4 MG/2 ML IM STA (12:21)
[2017-05-12 12:57] LABS: BASOPHILS % (AUTO) 0.4 % (0.0-3.0); EOSINOPHILS # (AUTO) 0.2 K/ul (0.0-0.7); EOSINOPHILS % (AUTO) 2.9 % (0.0-7.0); HEMATOCRIT 35.3 % (42.0-52.0); HEMOGLOBIN 11.2 g/dl (14.0-18.0); IMMATURE GRANULOCYTE % (AUTO) 0.4 % (0.0-5.0); LYMPHOCYTES # (AUTO) 1.7 K/uL (0.60-3.4); LYMPHOCYTES % (AUTO) 30.3 (10.0-50.0); MEAN CORPUSCULAR HEMOGLOBIN 24.9 pg (27.0-31.0); MEAN CORPUSCULAR HGB CONC 31.7 (31.8-35.4); MEAN CORPUSCULAR VOLUME 78.6 fl (80.0-94.0); MONOCYTES # (AUTO) 0.5 K/uL (0.4-2.0); MONOCYTES % (AUTO) 9.1 (0-10); NEUTROPHILS # (AUTO) 3.1 K/ul (2.0-6.9); NEUTROPHILS % (AUTO) 56.9; PLATELET COUNT 400 10^3/uL (140-440); RED BLOOD COUNT 4.49 10^6/ul (4.70-6.10); WHITE BLOOD COUNT 5.48 K/ul (4.2-10.2)
[2017-05-12 12:59] LABS: BILIRUBIN,URINE 1+ (NEGATIVE); KETONES,URINE Negative (NEGATIVE); LEUKOCYTE ESTERASE ,URINE Negative (NEGATIVE); NITRITE,URINE Negative (NEGATIVE); PH,URINE 8.5 (5-9); PROTEIN,URINE 1+ (NEGATIVE); URINE, BLOOD Negative (NEGATIVE)
[2017-05-12 13:01] LABS: ADD URINE MICROSCOPIC YES
[2017-05-12 13:11] LABS: H. PYLORI ANTIBODY NEGATIVE (NEGATIVE); H.PYLORI INTERNAL QC INTERNAL QC VALID
[2017-05-12 13:22] LABS: ALBUMIN 3.4 g/dL (3.4-5.0); ALBUMIN/GLOBULIN RATIO 0.81; ANION GAP 15.8; BILIRUBIN,TOTAL 0.51 mg/dL (0.00-1.20); BUN/CREATININE RATIO 11.02; CALCIUM 9.6 mg/dL (8.2-10.2); CREATININE 1.27 mg/dL (0.60-1.10); POTASSIUM 2.8 mmol/L (3.5-5.1); TOTAL PROTEIN 7.6 g/dL (5.8-8.1); TROPONIN I 0.013 ng/ml (0.0000-0.4000)
--- NOTE | 2017-05-12 13:45 | CT ---
EXAM: CT abdomen pelvis without contrast HISTORY: Right upper quadrant pain and right flank pain COMPARISON: CT abdomen pelvis 02/09/2017 and multiple priors TECHNIQUE: Serial axial images of the abdomen pelvis were performed from the lung bases through the inferior pelvis without contrast. These were viewed in multiple planes. FINDINGS: The lung bases demonstrate emphysematous disease. There is a moderate hiatal hernia with mild soft tissue wall thickening. Evaluation is limited due to lack of contrast. The gallbladder demonstrates layering stones with no wall thickening or pericholecystic fluid. The liver is unremarkable with no hepatic lesion. The a drenal glands are normal. The right kidney demonstrates no hydronephrosis or hydroureter. There is no visualized stone. The left kidney is normal. The spleen is unremarkable. The pancreas is unre markable. The small bowel in the abdomen pelvis is normal. The colon demonstrates diverticulosis without dive rticulitis. The appendix is normal. There is no free air, free fluid or lymphadenopathy. The pros barron is unremarkable. Urinary bladder is partially distended. There is mild atherosclerotic diseas e. The osseous structures are unremarkable. IMPRESSION: 1. No acute intra-abdominal or pelvic process to account for patient's symptoms. 2. Kidneys are unremarkable, appendix is normal and the gallbladder demonstrates minimal layering s tones with no inflammation. 3. Moderate hiatal hernia with wall thickening relatively unchanged from prior exam.
--- NOTE | 2017-05-12 13:48 | DI ---
Exam: Chest two-view History: Chest pain FINDINGS: Normal cardiomediastinal contours. Small hiatus hernia shadow. Lungs are hyperexpanded. No infiltrative opacities. No pneumothorax. No acute chest wall abnormality. Impression: Chronic obstructive pulmonary disease. No acute abnormalities are seen.
[2017-05-12] MEDS ORDERED: POTASSIUM CHLORIDE PREMIX RUN 10 MEQ in PREMIX 100 ML WATER 1 BAG IV STA (13:54)
--- NOTE | 2017-05-12 14:14 | ED.PDOC ---
General ED Provider: Dr. GARY KATHLEEN Chief Complaint: Abdominal Pain Stated Complaint: ABDOMINAL PAIN Time Seen by Physician: 12:00 Mode of Arrival: Walk-In Information Source: Patient Exam Limitations: No limitations Primary Care Provider: GIOVANNI SIDHU Nursing and Triage Documentation Reviewed and Agree: Yes GI Complaint Exam - Abdominal Pain Complaint/Exam Onset: Gradual Duration: EPIGASTRIC Symptoms Are: Still present Timing: Constant Initial Severity: Moderate Current Severity: Moderate Location of Pain: Epigastric Character: Reports: Aching Alleviating: Reports: None Associated Signs and Symptoms: Denies: Diaphoresis, Fever, Cough, Chest pain, Dizziness, Back pain, Constipation, Blood in stool, Dysuria, Urinary frequency, Decreased urine output, Decreased appetite, Discharge, Nausea, Vomiting, Diarrhea, Decreased activity Related History: Reports: Similar episode Testicular Torsion Risk Factors: Reports: None Surgical Obstruction Risk Factors: Reports: None Related Surgical History: Reports: None Abdominal Findings: Present: None Review of Systems - Review Of Systems Constitutional: Reports: No symptoms Eyes: Reports: No symptoms Ears, Nose, Mouth, Throat: Reports: No symptoms Respiratory: Reports: No symptoms Cardiac: Reports: No symptoms GI: Reports: Abdominal pain : Reports: No symptoms Musculoskeletal: Reports: No symptoms Skin: Reports: No symptoms Neurological: Reports: No symptoms Endocrine: Reports: No symptoms Hematologic/Lymphatic: Reports: No symptoms All Other Systems: Reviewed and Negative Past Medical History - Past Medical History Previously Healthy: Yes Endocrine: Reports: None Cardiovascular: Reports: Hypertension Respiratory: Reports: COPD Hematological: Reports: None Gastrointestinal: Reports: GERD Genitourinary: Reports: None Neuro/Psych: Reports: TIA Musculoskeletal: Reports: Arthritis, Joint Pain (oa) Cancer: Reports: None Other Pertinent Past Medical History: Alcoholism drinks 1/2 pint every 3 days. - Surgical History General Surgical History: Reports: Orthopedic ( right knee 2015) - Family History Family History: Reports: None - Social History Smoking Status: Current every day smoker, Light tobacco smoker Hx Substance Use: No Alcohol Screening: Occasionally Physical Exam - Physical Exam Appearance: Well-appearing, No pain distress, Well-nourished Eyes: JEREMY, EOMI, Conjunctiva clear ENT: Ears normal, Nose normal, Oropharynx normal Respiratory: Airway patent, Breath sounds clear, Breath sounds equal, Respirations nonlabored Cardiovascular: RRR, Pulses normal, No rub, No murmur GI/: Soft, Nontender, No masses, Bowel sounds normal, No Organomegaly Musculoskeletal: Normal strength, ROM intact, No edema, No calf tenderness Skin: Warm, Dry, Normal color Neurological: Sensation intact, Motor intact, Reflexes intact, Cranial nerves intact, Alert, Oriented Psychiatric: Affect appropriate, Mood appropriate Interpretation - Radiology Interpretation Radiology Interpretation By: Radiologist Radiology Results: No acute changes Physician Notification - Case Discussed Physician Notified: HOSPITALIST Time of Notification: 14:13 Admit To: Inpatient Critical Care Note - Critical Care Note Total Time (mins): 0 Course - Course Hematology/Chemistry: 05/12/17 12:45 05/12/17 12:45 Orders, Labs, Meds: Lab Review 05/12/17 05/12/17 12:24 12:45 WBC 5.48 RBC 4.49 L Hgb 11.2 L Hct 35.3 L MCV 78.6 L MCH 24.9 L MCHC 31.7 L RDW Coeff of Ti 17.5 H Plt Count 400 Immature Gran % (Auto) 0.4 Neut % (Auto) 56.9 Lymph % (Auto) 30.3 [place] % (Auto) 9.1 Eos % (Auto) 2.9 Baso % (Auto) 0.4 Immature Gran # (Auto) 0.0 Neut # 3.1 Lymph # 1.7 [place] # 0.5 Eos # 0.2 Baso # 0.0 Sodium 141 Potassium 2.8 L Chloride 92 L Carbon Dioxide 36 H Anion Gap 15.8 BUN 14 Creatinine 1.27 H Estimated GFR (MDRD) 70.00 BUN/Creatinine Ratio 11.02 Glucose 99 Calcium 9.6 Total Bilirubin 0.51 AST 22 ALT 10 L Alkaline Phosphatase 71 Total Creatine Kinase 70 Troponin I 0.0130 Total Protein 7.6 Albumin 3.4 Globulin 4.2 Albumin/Globulin Ratio 0.81 Amylase 45 Lipase 20 Urine Color Yellow Urine Clarity Clear Urine pH 8.5 Ur Specific [place] 1.015 Urine Protein 1+ Urine Glucose (UA) Negative Urine Ketones Negative Urine Blood Negative Urine Nitrite Negative Urine Bilirubin 1+ Urine Urobilinogen 1.0 Ur Leukocyte Esterase Negative Urine Microscopic RBC 0-2 Urine Microscopic WBC 0-2 Ur Squamous Epith Cells Not present Ur Renal Epithelial Cell 0-2 Hyaline Casts 0-2 H. pylori IgG Antibody Negative Orders Category Date Time Status EKG-(ED ONLY) Stat CARDIO 05/12/17 12:21 Completed AMYLASE Stat LAB 05/12/17 12:45 Completed CBC W/ AUTO DIFF Stat LAB 05/12/17 12:45 Completed COMPREHENSIVE METABOLIC PANEL Stat LAB 05/12/17 12:45 Completed CREATINE KINASE Stat LAB 05/12/17 12:45 Completed H. PYLORI SCREEN Stat LAB 05/12/17 12:45 Completed LIPASE Stat LAB 05/12/17 12:45 Completed TROPONIN I Stat LAB 05/12/17 12:45 Completed URINALYSIS C & S IF INDICATED Stat LAB 05/12/17 12:24 Completed Morphine Sulfate [Morphine 4 mg/ml Syringe] MEDS 05/12/17 12:21 Discontinued 4 mg IM ONCE STA Ondansetron HCl/Pf [Zofran 4 mg/2 ml] MEDS 05/12/17 12:21 Discontinued 4 mg IM ONCE STA Potassium Chloride [Potassium Chloride Premix Run] 10 MEDS 05/12/17 13:54 Active meq Premix 100 ml Water 1 bag IV ONCE CHEST, 2 VIEWS PA & LAT Stat RADS 05/12/17 12:[address] ABDOMEN/PELVIS WO CONTRAST Stat RADS 05/12/17 12:20 Completed Medications Generic Name Dose Route Start Last Admin Trade Name Freq PRN Reason Stop Dose Admin Potassium Chloride 10 meq/ 100 mls @ 100 mls/hr 05/12/17 13:54 Sterile Water IV 05/12/17 14:53 ONCE STA Discontinued Medications Generic Name Dose Route Start Last Admin Trade Name Freq PRN Reason Stop Dose Admin Morphine Sulfate 4 mg 05/12/17 12:21 05/12/17 12:36 Morphine 4 Mg/Ml Syringe IM 05/12/17 12:22 4 mg ONCE STA Administration Ondansetron HCl 4 mg 05/12/17 12:21 05/12/17 12:36 Zofran 4 Mg/2 Ml IM 05/12/17 12:22 4 mg ONCE STA Administration Vital Signs: Temp Pulse Resp BP Pulse Ox 05/12/17 12:00 98.8 F 98 H 20 110/75 95 Departure - Departure Time of Disposition: 14:13 Disposition: ADMITTED INPATIENT Discharge Problem: Abdominal pain, Hypokalemia Instructions: Abdominal Pain (ED) Condition: Good Pt referred to PMD for follow-up: No Allergies/Adverse Reactions: Allergies No Known Allergies Allergy (Verified 05/12/17 11:59) Home Medications: Ambulatory Orders Lansoprazole [Prevacid] 30 mg PO DAILY 10/30/15 Albuterol Sulfate [Proair Hfa] 2 puff IH Q4H 10/04/16 Ranitidine HCl [Zantac] 150 mg PO BIDAC 10/04/16 Amlodipine Besylate [Norvasc] 10 mg PO DAILY 02/07/17 Disposition Discussed With: Patient
[2017-05-12 15:27] VITALS: BMI 20.4
[2017-05-12] MEDS: FOLIC ACID 1 MG, THIAMINE 100 MG, INFUVITE ADULT 10 ML in SODIUM CHLORIDE 0.9%-KCL 20 M... IV SCH (15:57)
[2017-05-12] MEDS ORDERED: POTASSIUM CHLORIDE PREMIX RUN 100 ML IV ONE (16:20)
[2017-05-12] MEDS ORDERED: MORPHINE 4 MG/ML SYRINGE IVP STA ×2 (16:31→19:26)
[2017-05-12 16:33] LABS: ALBUMIN 3.2 g/dL (3.4-5.0); ALBUMIN/GLOBULIN RATIO 0.74; ANION GAP 14.8; BILIRUBIN,TOTAL 0.49 mg/dL (0.00-1.20); BUN/CREATININE RATIO 11.53; CALCIUM 9.3 mg/dL (8.2-10.2); CREATININE 1.04 mg/dL (0.60-1.10); POTASSIUM 2.8 mmol/L (3.5-5.1); TOTAL PROTEIN 7.5 g/dL (5.8-8.1)
[2017-05-12] MEDS: PROAIR HFA IH SCH ×3 (16:43→22:55)
[2017-05-12] MEDS ORDERED: ZANTAC PO SCH (17:00)
[2017-05-12] MEDS ORDERED: DILAUDID 2 MG/ML SYRINGE IVP PRN (19:18)
[2017-05-12] MEDS ORDERED: MYLANTA SUSP PO STA (19:22)
[2017-05-12] MEDS: SYMBICORT 160-4.5 MCG INHALER IH SCH (19:59)
[2017-05-12] MEDS: PROTONIX IV IVP SCH (20:10)
[2017-05-12] MEDS ORDERED: PROTONIX PO ONE (20:11)
[2017-05-13] MEDS: FOLIC ACID 1 MG, THIAMINE 100 MG, INFUVITE ADULT 10 ML in SODIUM CHLORIDE 0.9%-KCL 20 M... IV SCH ×3 (00:11→18:12)
[2017-05-13] MEDS ORDERED: ATIVAN ONE (00:16)
[2017-05-13] MEDS: PROAIR HFA IH SCH ×4 (00:20→13:00)
[2017-05-13] MEDS ORDERED: ATIVAN IVP SCH (00:30)
[2017-05-13] MEDS: ATIVAN IVP SCH ×3 (05:22→17:59)
[2017-05-13 05:29] LABS: BASOPHILS # (AUTO) 0.1 K/uL (0-0.2); BASOPHILS % (AUTO) 0.8 % (0.0-3.0); EOSINOPHILS # (AUTO) 0.1 K/ul (0.0-0.7); EOSINOPHILS % (AUTO) 1.6 % (0.0-7.0); HEMOGLOBIN 10.2 g/dl (14.0-18.0); IMMATURE GRANULOCYTE % (AUTO) 0.2 % (0.0-5.0); LYMPHOCYTES % (AUTO) 32.9 (10.0-50.0); MEAN CORPUSCULAR HEMOGLOBIN 24.8 pg (27.0-31.0); MEAN CORPUSCULAR HGB CONC 30.9 (31.8-35.4); MEAN CORPUSCULAR VOLUME 80.1 fl (80.0-94.0); MONOCYTES # (AUTO) 0.6 K/uL (0.4-2.0); MONOCYTES % (AUTO) 9.8 (0-10); NEUTROPHILS # (AUTO) 3.4 K/ul (2.0-6.9); NEUTROPHILS % (AUTO) 54.7; PLATELET COUNT 371 10^3/uL (140-440); RED BLOOD COUNT 4.12 10^6/ul (4.70-6.10); WHITE BLOOD COUNT 6.14 K/ul (4.2-10.2)
[2017-05-13 05:49] LABS: ALBUMIN 2.9 g/dL (3.4-5.0); ALBUMIN/GLOBULIN RATIO 0.76; ANION GAP 12.2; BILIRUBIN,TOTAL 0.61 mg/dL (0.00-1.20); BUN/CREATININE RATIO 8.57; CALCIUM 8.8 mg/dL (8.2-10.2); CREATININE 1.05 mg/dL (0.60-1.10); POTASSIUM 3.2 mmol/L (3.5-5.1); TOTAL PROTEIN 6.7 g/dL (5.8-8.1)
[2017-05-13] MEDS ORDERED: PROTONIX PO SCH (06:30)
--- NOTE | 2017-05-13 08:40 | US ---
EXAM: Ultrasound abdomen limited. HISTORY: Upper abdominal pain. COMPARISON: CT 1 day prior. TECHNIQUE: Abdominal, real time with image documentation: limited (eg, single organ, quadrant, fol low-up) FINDINGS: The liver demonstrates slightly increased parenchymal echogenicity. There is no intrahep atic biliary dilatation. Portal venous flow is normal in direction. The gallbladder contains mobil e echogenic shadowing structures. There is borderline gallbladder wall thickening. There is no per icholecystic fluid. Common duct measures approximately 0.6 cm. Visualized portions of the pancreas are unremarkable. IMPRESSION: 1. Cholelithiasis with borderline gallbladder wall thickening. Correlate for signs of cholecystiti s. 2. Nonspecific increased hepatic echogenicity, which can be seen in fatty infiltration among other processes.
[2017-05-13] MEDS ORDERED: NON-FORMULARY MEDICATION (Amlodipine Besylate [Norvasc] 10 MG) PO SCH ×22 (09:00)
[2017-05-13] MEDS ORDERED: NON-FORMULARY MEDICATION (Lansoprazole [Prevacid] 30 MG) PO SCH ×22 (09:00)
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
[2017-05-13] MEDS: NORVASC PO SCH (09:29)
[2017-05-13] MEDS: SYMBICORT 160-4.5 MCG INHALER IH SCH ×2 (09:31→19:59)
[2017-05-13] MEDS: SPIRIVA IH SCH (09:31)
[2017-05-13] MEDS: PROTONIX IV IVP SCH ×2 (09:35→19:59)
[2017-05-13] MEDS ORDERED: PROAIR HFA IH PRN (13:43)
[2017-05-14] MEDS: ATIVAN IVP SCH ×3 (00:06→12:45)
[2017-05-14] MEDS: FOLIC ACID 1 MG, THIAMINE 100 MG, INFUVITE ADULT 10 ML in SODIUM CHLORIDE 0.9%-KCL 20 M... IV SCH ×3 (03:32→12:25)
[2017-05-14 05:17] LABS: BASOPHILS % (AUTO) 0.8 % (0.0-3.0); EOSINOPHILS # (AUTO) 0.3 K/ul (0.0-0.7); EOSINOPHILS % (AUTO) 4.7 % (0.0-7.0); HEMATOCRIT 34.1 % (42.0-52.0); HEMOGLOBIN 10.5 g/dl (14.0-18.0); IMMATURE GRANULOCYTE % (AUTO) 0.2 % (0.0-5.0); LYMPHOCYTES # (AUTO) 1.8 K/uL (0.60-3.4); LYMPHOCYTES % (AUTO) 33.4 (10.0-50.0); MEAN CORPUSCULAR HEMOGLOBIN 24.7 pg (27.0-31.0); MEAN CORPUSCULAR HGB CONC 30.8 (31.8-35.4); MEAN CORPUSCULAR VOLUME 80.2 fl (80.0-94.0); MONOCYTES # (AUTO) 0.5 K/uL (0.4-2.0); MONOCYTES % (AUTO) 8.8 (0-10); NEUTROPHILS # (AUTO) 2.8 K/ul (2.0-6.9); NEUTROPHILS % (AUTO) 52.1; PLATELET COUNT 387 10^3/uL (140-440); RED BLOOD COUNT 4.25 10^6/ul (4.70-6.10); WHITE BLOOD COUNT 5.33 K/ul (4.2-10.2)
[2017-05-14 05:37] LABS: ALBUMIN 2.8 g/dL (3.4-5.0); ALBUMIN/GLOBULIN RATIO 0.76; ANION GAP 12.4; BILIRUBIN,TOTAL 0.63 mg/dL (0.00-1.20); BUN/CREATININE RATIO 5.68; CALCIUM 8.6 mg/dL (8.2-10.2); CREATININE 0.88 mg/dL (0.60-1.10); POTASSIUM 3.4 mmol/L (3.5-5.1); TOTAL PROTEIN 6.5 g/dL (5.8-8.1)
[2017-05-14] MEDS: SPIRIVA IH SCH (08:20)
[2017-05-14] MEDS: SYMBICORT 160-4.5 MCG INHALER IH SCH (08:20)
[2017-05-14] MEDS: NORVASC PO SCH (08:20)
--- NOTE | 2017-05-14 08:56 | PN ---
DATE OF VISIT: 05/13/17 The patient this morning is feeling much better and denies any abdominal pain. He wanted to eat. The patient on examination was alert and in no distress. ABDOMEN: Soft with no remarkable tenderness. Bowel sounds are active. HEART: Normal sinus rhythm. VITAL SIGNS: Early in the morning at 5:20 a.m. showed a temperature of 97.5, pulse 77, blood pressure 122/73, respiratory rate 20, oxygen saturation 88 at room air. The oxygen saturation did go up to 96. He had been placement problem probably. He denies any shortness of breath. The patient is given a full liquid, low fat diet. However, the nurse had reported that the patient went to the cafeteria and had a hamburger. His labs today showed essentially the same: CBC with the MCV is low, as well as the MCH and the RDW is elevated. The potassium has returned from 2.8 to 3.2. His liver enzymes are normal, in spite of his drinking. The GFR is 87. Helicobacter Pylori serum was negative. If the patient continues to have no pain or markedly less amount of pain by tomorrow, that he most likely will be discharged. He was given Ativan 0.5 mg every 6 hours because of his chronic drinking problem. Although, he claimed to had stopped drinking by Friday. His last intake of alcohol was consisting of half a pint of Vodka or more. The patient has cholelithiasis with borderline gallbladder wall thickening. The patient no longer has tenderness in the epigastric and right upper quadrant areas which he had last night. This patient is to follow up with his family physician, Dr. Dale Thomas in [place]. He is advised to stop smoking completely and stop drinking, which aggravates the ulcer. This patient needs to have an endoscopy. No upper GI series is done since he had improved. An endoscopic soon will probably document the presence of absence of an ulcer. REEMA
[2017-05-14] MEDS: PROTONIX IV IVP SCH (09:24)
[2017-05-14 09:50] VITALS: BP 149/90; TEMP 97.7
--- NOTE | 2017-05-20 13:10 | DS ---
PATIENT IDENTIFICATION: 63 year old black male admitted to the hospital because of epigastric pain of increasing intensity radiating directly to the back and slightly to the right side of the spinal column. The patient, about five days prior to presentation and subsequent admission to the hospital, did drink vodka about a half a pint or more. He does consume vodka several days a week. HOSPITAL COURSE: The patient by the following day, Friday, did experience epigastric pain and took some Flexeril. He had not had any alcohol since that . The pain had increased and he did take some aspirin to hopefully relieve the pain, but that did not improve any and in fact the pain has intensified prompting him to visit the emergency room. The patient after workup was subsequently admitted to the hospital. The patient in the emergency room received Morphine 4 mg IV, as well as Zofran 4 mg. Examination initially after the admission revealed an alert individual who is complaining of epigastric pain radiating to the back and rated the pain as severe, about 10 on a scale of 1-10. LUNGS: Clear to auscultation in both sides. HEART: Regular with good tones and no murmurs. ABDOMEN: Markedly tender in the epigastric, as well as the upper quadrants. There is some tenderness in the lower. There are no masses palpable and the bowel sounds were active. Chest x-ray showed chronic obstructive pulmonary disease. No acute abnormalities noted. CT scan on the same day of the abdomen and pelvis showed cholelithiasis, but no cholecystitis. Both of these were done at the emergency room on 05/12/2017. Morphine was discontinued and changed to Dilaudid 1 mg every three hours IV prn. The patient also was given 30 cc of Maalox. The patient remained afebrile from admission to 05/13/2017. VITAL SIGNS: At 6 p.m. on 05/13/2017 showed a temperature of 98.1, pulse 95, blood pressure 134/87, respiratory rate 20, oxygen saturation 97 at room air. The patient is feeling much better and the pain has almost completely resolved. He was wanting to eat and he was given a full liquid low fat diet. The patient, however, was observed to have been eating a sandwich at the cafeteria. Abdominal ultrasound showed cholelithiasis with borderline gallbladder wall thickening. Labs on 05/13/2017 showed moderate anemia at 10.2 grams hemoglobin , hematocrit 33, normal WBC and normal platelet count. Electrolytes showed slightly lower potassium, but better than admission. It is now 3.2 from 2.8. The rest of the chemistries were unremarkable. Serum Amylase and Lipase on admission were normal and Vitamin B1 was 286.2, normal is 66.5 to 200. Vitamin B12 is 296-normal is 213 to 816 picograms per ml. 45 Hydroxy Vitamin D level is 35 and Procalcitonin is normal at 0.05. The patient on 05/14/17 claimed that he is feeling well and no abdominal pain. The patient's CBC on this day showed a normal WBC and the same hematocrit and hemoglobin. Potassium now close to normal at 3.4. The Albumin remained low. VITAL SIGNS: At 9:40 a.m. showed a temperature of 97.7, pulse 99, blood pressure 149/90, respiratory rate 20, oxygyn saturation 99 at room air. He is alert, oriented times four. Not dyspneic, nor tachypneic without any abdominal pain. LUNGS: Clear to auscultation in both sides. HEART: Normal sinus rhythm. ABDOMEN: Flat, soft with no significant tenderness including the epigastric area. Bowel sounds are active. LOWER EXTREMITIES: The patient had no tenderness in the lower extremities. PLAN: The patient is then discharged and instructed to resume his previous medications and listed Dr. Thomas as his primary care physician. He had been to the clinic since I see a couple of medications that were written by Diana Jacobson. He was instructed to follow up with Dr. Thomas the next week. Do not drink any alcoholic beverages and to stop smoking if possible. Stop the Zantac and continue with the other medications. Diet-low fat and not big meals. The patient is already on a PPI. FINAL DIAGNOSES: 1. ACUTE ALCOHOLIC GASTRITIS, PROBABLE 2. CHRONIC ALCOHOL USE AND ABUSE, PERSISTENT 3. CHRONIC TOBACCO USE AND ABUSE, PERSISTENT 5. CHRONIC OBSTRUCTIVE PULMONARY DISEASE 6. HYPERTENSION CONTROLLED. NOTE: The patient is not on Omeprazole, but is on Lansoprazole. [facility]
== END 2017-05-14 13:30 | disposition home or self-care (01) | DRG 392 ==
LOC: ED 11:57 → MEDSURG B 14:21
PROVIDERS: ADMIT General Practice; ATTEND General Practice
DX: K29.20 Alcoholic gastritis without bleeding (principal); F10.20 Alcohol dependence, uncomplicated; J44.9 Chronic obstructive pulmonary disease, unspecified; K80.20 Calculus of gallbladder without cholecystitis without obstruction; I10 Essential (primary) hypertension; R10.13 Epigastric pain; E87.6 Hypokalemia; F17.210 Nicotine dependence, cigarettes, uncomplicated; Z79.899 Other long term (current) drug therapy
CPT/HCPCS: 36415; 80053; 81001; 82150; 82550; 82607; 82652; 83690; 84145; 84425; 84484; 85025; 86677; 87040; 93005; 93010; 96372; 99223; 99232; 99239; 99284

== ENCOUNTER 2017-06-01 15:18 | Outpatient (CLI) ==
[2017-06-01 15:33] VITALS: BMI 21.1
== END 2017-06-01 15:19 | disposition home or self-care (01) ==
LOC: AMBL 15:18
PROVIDERS: ATTEND Family Medicine
DX: R11.2 Nausea with vomiting, unspecified (principal); R10.9 Unspecified abdominal pain; R00.0 Tachycardia, unspecified

== ENCOUNTER 2017-06-01 15:28 | Emergency (ER) ==
[2017-06-01] MEDS ORDERED: SODIUM CHLORIDE 1,000 ML IV STA (15:30)
[2017-06-01] MEDS ORDERED: PROTONIX IV IVP STA (15:30)
[2017-06-01] MEDS ORDERED: ZOFRAN 4 MG/2 ML IVP STA (15:31)
[2017-06-01] MEDS ORDERED: MORPHINE 2 MG/ML SYRINGE IVP STA (15:31)
[2017-06-01 15:33] VITALS: BP 138/86; TEMP 99; BMI 21.1
[2017-06-01 15:42] LABS: BASOPHILS % (AUTO) 0.6 % (0.0-3.0); EOSINOPHILS % (AUTO) 0.1 % (0.0-7.0); HEMATOCRIT 33.2 % (42.0-52.0); HEMOGLOBIN 10.6 g/dl (14.0-18.0); IMMATURE GRANULOCYTE % (AUTO) 0.4 % (0.0-5.0); LYMPHOCYTES # (AUTO) 1.3 K/uL (0.60-3.4); MEAN CORPUSCULAR HEMOGLOBIN 24.2 pg (27.0-31.0); MEAN CORPUSCULAR HGB CONC 31.9 (31.8-35.4); MEAN CORPUSCULAR VOLUME 75.8 fl (80.0-94.0); MONOCYTES # (AUTO) 0.4 K/uL (0.4-2.0); MONOCYTES % (AUTO) 6.1 (0-10); NEUTROPHILS # (AUTO) 5.1 K/ul (2.0-6.9); NEUTROPHILS % (AUTO) 73.8; PLATELET COUNT 489 10^3/uL (140-440); RED BLOOD COUNT 4.38 10^6/ul (4.70-6.10); WHITE BLOOD COUNT 6.85 K/ul (4.2-10.2)
[2017-06-01 16:08] LABS: ALBUMIN 3.7 g/dL (3.4-5.0); ALBUMIN/GLOBULIN RATIO 0.82; AMYLASE 52 U/L (25-115); CALCIUM 10.6 mg/dL (8.2-10.2); CARBON DIOXIDE 17 mmol/L (23-31); CHLORIDE 97 mmol/L (98-107); GLUCOSE 64 mg/dL (82-115); POTASSIUM 3.6 mmol/L (3.5-5.1); SODIUM 137 mmol/L (136-145); TOTAL PROTEIN 8.2 g/dL (5.8-8.1)
[2017-06-01 16:09] LABS: ALANINE AMINOTRANSFERASE 17 U/L (12-78); ALKALINE PHOSPHATASE 78 U/L (56-119); ANION GAP 26.6; ASPARTATE AMINO TRANSFERASE 34 U/L (15-37); BILIRUBIN,TOTAL 0.94 mg/dL (0.00-1.20); BLOOD UREA NITROGEN 19 mg/dL (7-18); BUN/CREATININE RATIO 15.44; CREATINE KINASE 113 U/L; CREATININE 1.23 mg/dL (0.60-1.10); LIPASE 13 U/L (8-78)
--- NOTE | 2017-06-01 16:15 | ED.PDOC ---
General ED Provider: Dr. TAYLOR BRIGGS-ER Chief Complaint: Nausea/Vomiting Stated Complaint: my belly is hurting and i am throwing up--no melena stools Time Seen by Physician: 15:30 Mode of Arrival: Ambulance Information Source: Patient Exam Limitations: No limitations Primary Care Provider: GIOVANNI SIDHU Nursing and Triage Documentation Reviewed and Agree: Yes GI Complaint Exam - Abdominal Pain Complaint/Exam Onset: Gradual Duration: several hours Symptoms Are: Still present Timing: Intermittent Initial Severity: Mild Location of Pain: RUQ, Epigastric Radiates To: Reports: Back Character: Reports: Dull, Aching, Burning Aggravating: Reports: None Alleviating: Reports: Spontaneous resolution Associated Signs and Symptoms: Reports: Nausea, Vomiting. Denies: Diaphoresis, Fever, Cough, Chest pain, Dizziness, Back pain, Constipation, Blood in stool, Dysuria, Urinary frequency, Decreased urine output, Decreased appetite, Discharge, Diarrhea, Decreased activity Abdominal Findings: Present: None Differential Diagnoses: Constipation, Gastroenteritis, Pancreatitis Quality Indicator For Non-Traumatic Chest Pain/Syncope: EKG Performed Review of Systems - Review Of Systems Constitutional: Reports: No symptoms Eyes: Reports: No symptoms Ears, Nose, Mouth, Throat: Reports: No symptoms Respiratory: Reports: No symptoms Cardiac: Reports: No symptoms GI: Reports: Abdominal pain, Nausea, Vomiting : Reports: No symptoms Musculoskeletal: Reports: No symptoms Skin: Reports: No symptoms Neurological: Reports: No symptoms Endocrine: Reports: No symptoms Hematologic/Lymphatic: Reports: No symptoms All Other Systems: Reviewed and Negative Past Medical History - Past Medical History Previously Healthy: Yes Endocrine: Reports: None Cardiovascular: Reports: Hypertension Respiratory: Reports: COPD Hematological: Reports: None Gastrointestinal: Reports: GERD Genitourinary: Reports: None Neuro/Psych: Reports: TIA Musculoskeletal: Reports: Arthritis, Joint Pain (oa) Cancer: Reports: None Other Pertinent Past Medical History: Alcoholism drinks 1/2 pint every 3 days. - Surgical History General Surgical History: Reports: Orthopedic ( right knee 2015) - Family History Family History: Reports: None - Social History Smoking Status: Current every day smoker, Light tobacco smoker Hx Substance Use: No Alcohol Screening: Occasionally Lives: With family - Immunizations Tetanus Shot up to Date: Yes Physical Exam - Physical Exam Appearance: Well-appearing, No pain distress, Well-nourished Pain Distress: Mild Eyes: JEREMY, EOMI, Conjunctiva clear ENT: Ears normal, Nose normal, Oropharynx normal Neck: Supple Respiratory: Airway patent, Breath sounds clear, Breath sounds equal, Respirations nonlabored Cardiovascular: RRR, Pulses normal, No rub, No murmur GI/: Soft, Nontender, No masses, Bowel sounds normal, No Organomegaly Musculoskeletal: Normal strength, ROM intact, No edema, No calf tenderness Skin: Warm, Dry, Normal color Neurological: Sensation intact, Motor intact, Reflexes intact, Cranial nerves intact, Alert, Oriented Psychiatric: Affect appropriate Interpretation - Radiology Interpretation Radiology Interpretation By: Radiologist Radiology Results: Negative Exam Interpreted: CT Scan Re-Evaluation - Re-Evaluation Time of Re-Evaluation: 16:35 Status: Improved Vital Signs Stable: Yes Pain Level: 0 Appearance: NAD Lungs: Clear Skin: Warm and Dry Neuro: Alert and Oriented X3 CV: RRR Critical Care Note - Critical Care Note Total Time (mins): 0 Course - Course Hematology/Chemistry: 06/01/17 15:25 06/01/17 15:25 Orders, Labs, Meds: Lab Review 06/01/17 06/01/17 15:25 16:14 WBC 6.85 RBC 4.38 L Hgb 10.6 L Hct 33.2 L MCV 75.8 L MCH 24.2 L MCHC 31.9 RDW Coeff of Ti 18.6 H Plt Count 489 H Immature Gran % (Auto) 0.4 Neut % (Auto) 73.8 Lymph % (Auto) 19.0 [place] % (Auto) 6.1 Eos % (Auto) 0.1 Baso % (Auto) 0.6 Immature Gran # (Auto) 0.0 Neut # 5.1 Lymph # 1.3 [place] # 0.4 Eos # 0.0 Baso # 0.0 Sodium 137 Potassium 3.6 Chloride 97 L Carbon Dioxide 17 L Anion Gap 26.6 BUN 19 H Creatinine 1.23 H Estimated GFR (MDRD) 72.00 BUN/Creatinine Ratio 15.44 Glucose 64 L Calcium 10.6 H Total Bilirubin 0.94 AST 34 ALT 17 Alkaline Phosphatase 78 Total Creatine Kinase 113 Troponin I < 0.0100 Total Protein 8.2 H Albumin 3.7 Globulin 4.5 Albumin/Globulin Ratio 0.82 Amylase 52 Lipase 13 Urine Color Yellow Urine Clarity Clear Urine pH 5.5 Ur Specific [place] 1.025 Urine Protein Trace Urine Glucose (UA) Negative Urine Ketones 4+ Urine Blood Negative Urine Nitrite Negative Urine Bilirubin Negative Urine Urobilinogen 0.2 Ur Leukocyte Esterase Negative Ur Squamous Epith Cells Not present Plasma/Serum Alcohol < 10.0 Orders Category Date Time Status EKG-(ED ONLY) Stat CARDIO 06/01/17 15:29 Completed ED IV/MEDIPORT/POWERPORT .ONCE EMERGENCY 06/01/17 15:30 Active AMYLASE Stat LAB 06/01/17 15:25 Completed CBC W/ AUTO DIFF Stat LAB 06/01/17 15:25 Completed COMPREHENSIVE METABOLIC PANEL Stat LAB 06/01/17 15:25 Completed CREATINE KINASE Stat LAB 06/01/17 15:25 Completed ETOH LEVEL [BLOOD ALCOHOL] Stat LAB 06/01/17 15:25 Completed LIPASE Stat LAB 06/01/17 15:25 Completed TROPONIN I Stat LAB 06/01/17 15:25 Completed URINALYSIS C & S IF INDICATED Stat LAB 06/01/17 16:14 Completed 0.9 % Sodium Chloride [Saline Flush] MEDS 06/01/17 15:30 Ordered 1 syr IVF PRN PRN Morphine Sulfate [Morphine 2 mg/ml Syringe] MEDS 06/01/17 15:31 Discontinued 2 mg IVP ONCE STA Ondansetron HCl/Pf [Zofran 4 mg/2 ml] MEDS 06/01/17 15:31 Discontinued 4 mg IVP ONCE STA Pantoprazole Sodium [Protonix IV] MEDS 06/01/17 15:30 Discontinued 40 mg IVP ONCE STA Sodium Chloride 0.9% [Sodium Chloride] 1,000 ml MEDS 06/01/17 15:[address] ABDOMEN/PELVIS WO CONTRAST Stat RADS 06/01/17 15:31 Completed CXR [CHEST, 1V AP ONLY] Stat RADS 06/01/17 15:30 Taken Medications Generic Name Dose Route Start Last Admin Trade Name Freq PRN Reason Stop Dose Admin Sodium Chloride 1 syr 06/01/17 15:30 06/01/17 16:09 Saline Flush IVF 1 syr PRN PRN Administration To flush IV Discontinued Medications Generic Name Dose Route Start Last Admin Trade Name Freq PRN Reason Stop Dose Admin Sodium Chloride 1,000 mls @ 1,000 mls/hr 06/01/17 15:30 06/01/17 16:09 Sodium Chloride IV 06/01/17 16:29 1,000 mls/hr BOLUS STA Administration Morphine Sulfate 2 mg 06/01/17 15:31 06/01/17 16:08 Morphine 2 Mg/Ml Syringe IVP 06/01/17 15:32 2 mg ONCE STA Administration Ondansetron HCl 4 mg 06/01/17 15:31 06/01/17 16:04 Zofran 4 Mg/2 Ml IVP 06/01/17 15:32 4 mg ONCE STA Administration Pantoprazole Sodium 40 mg 06/01/17 15:30 06/01/17 16:04 Protonix Iv IVP 06/01/17 15:31 40 mg ONCE STA Administration Vital Signs: Temp Pulse Resp BP Pulse Ox 06/01/17 15:29 99 F 109 H 20 138/86 98 Departure - Departure Time of Disposition: 16:36 Disposition: HOME SELF-CARE Discharge Problem: Abdominal pain Instructions: Abdominal Pain (ED) Condition: Good Pt referred to PMD for follow-up: Yes Additional Instructions: low fat diet---librax q 6hrs prn pain #10--f/u with pcp this week--consider gb xrays--f/u wtih pcp to review his anemia Allergies/Adverse Reactions: Allergies No Known Allergies Allergy (Verified 05/12/17 11:59) Home Medications: Ambulatory Orders Lansoprazole [Prevacid] 30 mg PO DAILY 10/30/15 Albuterol Sulfate [Proair Hfa] 2 puff IH Q4H PRN 10/04/16 Amlodipine Besylate [Norvasc] 10 mg PO DAILY 02/07/17 Disposition Discussed With: Patient
[2017-06-01 16:19] LABS: BILIRUBIN,URINE Negative (NEGATIVE); KETONES,URINE 4+ (NEGATIVE); LEUKOCYTE ESTERASE ,URINE Negative (NEGATIVE); NITRITE,URINE Negative (NEGATIVE); PH,URINE 5.5 (5-9); PROTEIN,URINE Trace (NEGATIVE); URINE, BLOOD Negative (NEGATIVE)
[2017-06-01 16:20] LABS: ADD URINE MICROSCOPIC YES
--- NOTE | 2017-06-01 16:27 | CT ---
Exam: CT exam of the abdomen pelvis without intravenous contrast. Comparison: 05/12/2017. Reason for exam: Abdominal pain with vomiting. FINDINGS: Image interpretation is limited by the lack of intravenous contrast. Emphysematous disea se and mild atelectasis is seen within the partially imaged lung bases. There is a [id number] e hiatal hernia. The liver, gallbladder, spleen, adrenal glands, and pancreas appear grossly unremarkable within the limitations of a noncontrast exam. No discrete hydronephrosis, nephrolithiasis, or hydroureter. No inflammatory changes are seen within the abdominal or pelvic fat. No intra-abdominal free air or pelvic free fluid. No focal small bowel dilatation or transition point. The appendix is unremarkable. A moderate amount of stool seen within the colon. The bladder is unremarkable. The prostate is prominent in size causing posterior impression on the urinary bladder. No osteoblastic or osteolytic lesions. No acute fracture. Impression: 1. No acute imaging findings are seen within the abdomen or pelvis to explain patient's symptomolog y. 2. Moderately sized hiatal hernia. 3. Emphysematous disease. Report faxed [id number] hours on 06/01/2017.
--- NOTE | 2017-06-01 17:14 | DI ---
Exam: Single x-ray of the chest. Comparison: 05/12/2017. Reason for exam: Abdominal pain. FINDINGS: No pneumothorax, pleural effusion, or focal consolidation. The cardiac silhouette is not enlarged. The imaged osseous structures are unremarkable without acute fracture. Impression: No acute cardiopulmonary process.
== END 2017-06-01 16:44 | disposition home or self-care (01) ==
LOC: ED 15:28
DX: R10.11 Right upper quadrant pain (principal); R10.13 Epigastric pain; R11.2 Nausea with vomiting, unspecified; D64.9 Anemia, unspecified; Z79.899 Other long term (current) drug therapy; F17.210 Nicotine dependence, cigarettes, uncomplicated
CPT/HCPCS: 36415; 80053; 80307; 81001; 82150; 82550; 83690; 84484; 85025; 93005; 93010; 96361; 96374; 96375; 99283

== ENCOUNTER 2017-07-27 07:58 | Outpatient (CLI) ==
[2017-07-27 08:13] VITALS: BMI 20.5
== END 2017-07-27 07:59 ==
LOC: AMBL 07:58
PROVIDERS: ATTEND Emergency Medicine
DX: M25.569 Pain in unspecified knee (principal); M25.462 Effusion, left knee

== ENCOUNTER 2017-07-27 08:06 | Emergency (ER) ==
[2017-07-27 08:13] VITALS: BMI 20.5
--- NOTE | 2017-07-27 08:19 | ED.PDOC ---
General ED Provider: Dr. VINH MARINA JR Chief Complaint: Knee Pain/Injury Stated Complaint: slight swelling and pain to left knee on friday, denies injury , swelling worse, taking leftover antibiotics, could not sleep, no prior problem with left knee[ End ] 3 days 97.7 75 20 98% 134/106 10/10. is taking little green pills from [place] emergency room NOTE RX CEFTIN 02/09/[address] KATHLEEN Time Seen by Physician: 08:19 Mode of Arrival: Stretcher Information Source: Patient Exam Limitations: No limitations Primary Care Provider: GIOVANNI SIDHU Nursing and Triage Documentation Reviewed and Agree: No Review of Systems - Review Of Systems Constitutional: Reports: Malaise Eyes: Reports: No symptoms, Blindness, Blurred vision, Vision change, Drainage, Decreased acuity, Foreign body sensation, Inflammation, Pain, Photophobia, Previous injury, Shadows, Tunnel vision, Contact lenses, Glasses, Other Ears, Nose, Mouth, Throat: Reports: No symptoms Respiratory: Reports: No symptoms Cardiac: Reports: No symptoms GI: Reports: No symptoms : Reports: No symptoms Musculoskeletal: Reports: Joint pain Skin: Reports: No symptoms Neurological: Reports: No symptoms Endocrine: Reports: No symptoms Hematologic/Lymphatic: Reports: No symptoms All Other Systems: Other Past Medical History - Past Medical History Previously Healthy: Yes Endocrine: Reports: None Cardiovascular: Reports: Hypertension Respiratory: Reports: COPD Hematological: Reports: None Gastrointestinal: Reports: GERD Genitourinary: Reports: None Neuro/Psych: Reports: TIA Musculoskeletal: Reports: Arthritis, Joint Pain (oa) Cancer: Reports: None Other Pertinent Past Medical History: Alcoholism drinks 1/2 pint every 3 days. - Surgical History General Surgical History: Reports: Orthopedic ( right knee 2015) - Family History Family History: Reports: None - Social History Smoking Status: Current every day smoker, Light tobacco smoker Hx Substance Use: No Alcohol Screening: Occasionally Physical Exam - Physical Exam Appearance: Well-appearing, Thin Pain Distress: Moderate Eyes: JEREMY, EOMI, Conjunctiva clear ENT: Ears normal, Nose normal, Oropharynx normal Neck: Supple Respiratory: Airway patent, Breath sounds clear, Breath sounds equal, Respirations nonlabored Cardiovascular: RRR, Pulses normal, No rub, No murmur GI/: Soft, Nontender, No masses, Bowel sounds normal, No Organomegaly Musculoskeletal: Limited ROM (AROM LIMITED NOT LIMITATION PROM), Edema Skin: Warm, Dry, Normal color Neurological: Sensation intact, Motor intact, Reflexes intact, Cranial nerves intact, Alert, Oriented Psychiatric: Affect appropriate Interpretation - Radiology Interpretation Radiology Interpretation By: Radiologist Radiology Results: Negative Exam Interpreted: Other (KNEE- OLD MCL INJURY) Critical Care Note - Critical Care Note Total Time (mins): 0 Course - Course Hematology/Chemistry: 07/27/17 08:40 Orders, Labs, Meds: Lab Review 07/27/17 08:40 WBC 5.08 RBC 4.17 L Hgb 10.3 L Hct 32.8 L MCV 78.7 L MCH 24.7 L MCHC 31.4 L RDW Coeff of Ti 18.6 H Plt Count 500 H Immature Gran % (Auto) 0.2 Neut % (Auto) 51.5 Lymph % (Auto) 37.0 [place] % (Auto) 7.1 Eos % (Auto) 3.0 Baso % (Auto) 1.2 Immature Gran # (Auto) 0.0 Neut # 2.6 Lymph # 1.9 [place] # 0.4 Eos # 0.2 Baso # 0.1 Orders Category Date Time Status MARISOL [ED MARISOL WRAP] .ONCE EMERGENCY 07/27/17 09:00 Active CRUTCHES [ED CRUTCHES] .ONCE EMERGENCY 07/27/17 08:41 Active BLOOD CULTURE Stat LAB 07/27/17 08:40 Received CBC W/ AUTO DIFF Stat LAB 07/27/17 08:40 Received Ketorolac Tromethamine [Toradol] MEDS 07/27/17 08:20 Discontinued 60 mg IM ONCE STA KNEE, LEFT 4 VIEWS Stat RADS 07/27/17 08:24 Completed Medications Discontinued Medications Generic Name Dose Route Start Last Admin Trade Name Freq PRN Reason Stop Dose Admin Ketorolac Tromethamine 60 mg 07/27/17 08:20 07/27/17 08:32 Toradol IM 07/27/17 08:21 60 mg ONCE STA Administration Vital Signs: Temp Pulse Resp BP Pulse Ox 07/27/17 08:29 128/86 07/27/17 08:06 97.7 F 75 20 134/106 H 98 Departure - Departure Time of Disposition: 08:35 Disposition: HOME SELF-CARE Discharge Problem: Knee pain, Osteoarthritis (arthritis due to wear and tear of joints), Effusion , left knee, Anemia Instructions: Osteoarthritis (ED), Swollen Knee Joint (ED), Anemia (ED) Condition: Good Pt referred to PMD for follow-up: Yes Additional Instructions: CHANGE ANTIBIOTIC TO LEVAQUIN FOR ONE WEEK MAY USE CRUTCHES CALL PMD FOR FOLLOW UP - CONSIDER ORTHOPEDIC EVALUATION AND ARTHROCENTESIS DISCUSS ANEMIA WITHYOUR PHYSICIAN- INCREASE IRON RIGHT FOODS(SUCH 3 OUNCES OF ROAST BEEF OR SIMILAR A DAY) NORCO FOR PAIN Prescriptions: Hydrocodone Bit/Acetaminophen [[place] 5-325] 1 - 2 tab PO Q6HR PRN #12 tablet PRN Reason: pain Levofloxacin [Levaquin] 750 mg PO DAILY #7 tablet Allergies/Adverse Reactions: Allergies No Known Allergies Allergy (Verified 07/27/17 08:16) Home Medications: Ambulatory Orders Lansoprazole [Prevacid] 30 mg PO DAILY 10/30/15 Albuterol Sulfate [Proair Hfa] 2 puff IH Q4H PRN 10/04/16 Amlodipine Besylate [Norvasc] 10 mg PO DAILY 02/07/17 Hydrocodone Bit/Acetaminophen [[place] 5-325] 1 - 2 tab PO Q6HR PRN #12 tablet Levofloxacin [Levaquin] 750 mg PO DAILY #7 tablet 07/27/17
[2017-07-27] MEDS ORDERED: TORADOL IM STA (08:20)
[2017-07-27 08:31] VITALS: BP 128/86
[2017-07-27 08:47] LABS: BASOPHILS # (AUTO) 0.1 K/uL (0-0.2); BASOPHILS % (AUTO) 1.2 % (0.0-3.0); EOSINOPHILS # (AUTO) 0.2 K/ul (0.0-0.7); HEMATOCRIT 32.8 % (42.0-52.0); HEMOGLOBIN 10.3 g/dl (14.0-18.0); IMMATURE GRANULOCYTE % (AUTO) 0.2 % (0.0-5.0); LYMPHOCYTES # (AUTO) 1.9 K/uL (0.60-3.4); MEAN CORPUSCULAR HEMOGLOBIN 24.7 pg (27.0-31.0); MEAN CORPUSCULAR HGB CONC 31.4 (31.8-35.4); MEAN CORPUSCULAR VOLUME 78.7 fl (80.0-94.0); MONOCYTES # (AUTO) 0.4 K/uL (0.4-2.0); MONOCYTES % (AUTO) 7.1 (0-10); NEUTROPHILS # (AUTO) 2.6 K/ul (2.0-6.9); NEUTROPHILS % (AUTO) 51.5; PLATELET COUNT 500 10^3/uL (140-440); RED BLOOD COUNT 4.17 10^6/ul (4.70-6.10); WHITE BLOOD COUNT 5.08 K/ul (4.2-10.2)
--- NOTE | 2017-07-27 08:58 | DI ---
EXAM: Four views of the left knee. History: Left knee pain and swelling. Findings: No acute fracture or dislocation. Joint spaces are preserved. Ossification seen along t he medial femoral condyle consistent with old MCL injury. Atherosclerotic vascular calcifications. Impression: No acute osseous abnormality. Other findings as detailed above.
[2017-07-27 09:21] VITALS: TEMP 98.2
== END 2017-07-27 09:28 | disposition home or self-care (01) ==
LOC: ED 08:06
DX: M25.562 Pain in left knee (principal); M25.462 Effusion, left knee; M19.90 Unspecified osteoarthritis, unspecified site; D64.9 Anemia, unspecified; F17.210 Nicotine dependence, cigarettes, uncomplicated
CPT/HCPCS: 36415; 85025; 87040; 96372; 99283

== ENCOUNTER 2017-08-05 13:21 | Outpatient (CLI) ==
[2017-08-05 18:07] VITALS: BMI 21.1
== END 2017-08-05 13:22 | disposition home or self-care (01) ==
LOC: AMBL 13:21
PROVIDERS: ATTEND Internal Medicine
DX: R10.9 Unspecified abdominal pain (principal); M54.9 Dorsalgia, unspecified; R11.10 Vomiting, unspecified

== ENCOUNTER 2017-08-05 13:32 | Observation (INO) ==
[2017-08-05 14:13] LABS: BASOPHILS % (AUTO) 0.3 % (0.0-3.0); EOSINOPHILS % (AUTO) 0.2 % (0.0-7.0); HEMATOCRIT 30.9 % (42.0-52.0); HEMOGLOBIN 10.1 g/dl (14.0-18.0); IMMATURE GRANULOCYTE % (AUTO) 0.5 % (0.0-5.0); LYMPHOCYTES % (AUTO) 7.6 (10.0-50.0); MEAN CORPUSCULAR HEMOGLOBIN 25.3 pg (27.0-31.0); MEAN CORPUSCULAR HGB CONC 32.7 (31.8-35.4); MEAN CORPUSCULAR VOLUME 77.3 fl (80.0-94.0); MONOCYTES # (AUTO) 0.7 K/uL (0.4-2.0); MONOCYTES % (AUTO) 5.1 (0-10); NEUTROPHILS # (AUTO) 11.5 K/ul (2.0-6.9); NEUTROPHILS % (AUTO) 86.3; PLATELET COUNT 533 10^3/uL (140-440); WHITE BLOOD COUNT 13.29 K/ul (4.2-10.2)
[2017-08-05 14:31] LABS: ALBUMIN 3.2 g/dL (3.4-5.0); ALBUMIN/GLOBULIN RATIO 0.86; ANION GAP 17.7; BILIRUBIN,TOTAL 1.04 mg/dL (0.00-1.20); BUN/CREATININE RATIO 11.94; CALCIUM 9.7 mg/dL (8.2-10.2); CREATININE 1.59 mg/dL (0.60-1.10); TOTAL PROTEIN 6.9 g/dL (5.8-8.1)
[2017-08-05 14:54] LABS: POTASSIUM 2.7 mmol/L (3.5-5.1)
[2017-08-05] MEDS ORDERED: POTASSIUM CHLORIDE PREMIX RUN 10 MEQ in PREMIX 100 ML WATER 1 BAG IV STA ×2 (15:03→18:39)
[2017-08-05] MEDS ORDERED: CARAFATE PO STA (15:09)
[2017-08-05] MEDS ORDERED: PROTONIX IV IVP STA (15:09)
[2017-08-05] MEDS ORDERED: PROAIR HFA IH PRN (15:11)
[2017-08-05] MEDS ORDERED: POTASSIUM CHLORIDE PREMIX RUN 100 ML IV ONE ×3 (15:16→20:48)
[2017-08-05] MEDS ORDERED: SODIUM CHLORIDE 1,000 ML IV SCH (15:30)
--- NOTE | 2017-08-05 15:36 | CT ---
EXAM: CT abdomen pelvis without contrast HISTORY: Abdominal pain COMPARISON: CT abdomen pelvis 06/01/2017 and multiple priors TECHNIQUE: Serial axial images of the abdomen pelvis were performed from the lung bases through the inferior pelvis without contrast. These were viewed in multiple planes. FINDINGS: Lung bases demonstrate chronic obstructive pulmonary disease. Small to moderate hiatal h ernia. Evaluation is limited due to lack of contrast. The liver is unremarkable. The gallbladder is unrem arkable. The adrenal glands are normal. The kidneys are normal. Spleen is normal. The pancreas i s unremarkable. Stomach is normal. Small bowel in the abdomen and pelvis is unremarkable. There is a large amount of stool in the dist al colon. Colon is normal. The appendix is normal. Urinary bladder is mildly distended. The pros barron is unremarkable. No free air, free fluid or lymphadenopathy is identified. There is mild athe rosclerotic disease. The osseous structures are unremarkable. IMPRESSION: 1. No acute intra-abdominal or pelvic process to account for patient's symptoms. 2. Moderate hiatal hernia. 3. Stable chronic obstructive pulmonary disease.
--- NOTE | 2017-08-05 15:45 | CT ---
Exam: CT of the chest without intravenous contrast. Comparison: 02/09/2017. Reason for exam: Cough. FINDINGS: Similar appearing emphysematous changes are seen throughout the lung parenchyma with a bi apical predominance. There is similar appearing nodular densities and pleural thickening in the right lung apex that do n ot appear significantly changed when compared to the previous exam. There is increased nodular thickening seen along the right fissure with nodules measuring up to 10 m m x 7.7 mm. There are prominent appearing mediastinal lymph nodes that are incompletely evaluated wi thout intravenous contrast administration that appear to measure up to 12 mm in the short axis. There is a moderately-sized hiatal hernia. Atherosclerotic disease is seen within the aorta and dis koko arterial vasculature including the coronary vessels. The heart is not enlarged. Compression deformity in the superior T10 vertebral body likely represents a Schmorl's node. There i s similar appearing inflammatory changes in the bronchial sierra. Impression: 1. New nodular densities are seen in the right upper and middle lobes along the fissure measuring up to 10 mm. Imaging findings can be seen with granulomatous disease, infection, and neoplasia. Ishmael mmend short interval follow-up with contrasted CT imaging (6-8 week) or consider soft tissue samplin g for further characterization. 2. Similar appearing prominence of the mediastinal lymph nodes. 3. Emphysematous disease. 4. Diffuse bronchial wall thickening. Report faxed at [id number] hours on 08/05/2017
--- NOTE | 2017-08-05 15:53 | ED.PDOC ---
General ED Provider: Dr. GARY KATHLEEN Chief Complaint: Abdominal Pain Stated Complaint: abdomen Time Seen by Physician: 13:45 (seen with staff jignesh romo MD [facility] OT IN ED) Mode of Arrival: Stretcher Information Source: Patient, EMT Exam Limitations: No limitations Primary Care Provider: GIOVANNI SIDHU Nursing and Triage Documentation Reviewed and Agree: Yes GI Complaint Exam - Abdominal Pain Complaint/Exam Onset: Gradual Duration: 1 DAY Symptoms Are: Still present Timing: Intermittent Initial Severity: Mild Current Severity: Mild Location of Pain: Diffuse Character: Reports: Dull Aggravating: Reports: None Alleviating: Reports: Spontaneous resolution Associated Signs and Symptoms: Reports: Nausea, Vomiting (X2). Denies: Diaphoresis, Fever, Cough, Chest pain, Dizziness, Back pain, Constipation, Blood in stool, Dysuria, Urinary frequency, Decreased urine output, Decreased appetite, Discharge, Diarrhea, Decreased activity Related History: Reports: Similar episode AAA Risk Factors: Reports: Smoking, Hypertension, Atherosclerosis Cardiac Risk Factors: Reports: Hypertension, Smoking Testicular Torsion Risk Factors: Reports: None Surgical Obstruction Risk Factors: Reports: None Related Surgical History: Reports: None Abdominal Findings: Present: None Differential Diagnoses: Appendicitis, Bowel Obstruction, Constipation, Diverticulitis, Pancreatitis, Irritable Bowel Syndrome, Pneumonia, Renal Colic Quality Indicators for AMI: EKG in 10min. Quality Indicators for Cardiac Chest Pain: EKG in 10min. Review of Systems - Review Of Systems Constitutional: Reports: No symptoms Eyes: Reports: No symptoms Ears, Nose, Mouth, Throat: Reports: No symptoms Respiratory: Reports: No symptoms Cardiac: Reports: No symptoms GI: Reports: Abdominal pain, Nausea : Reports: No symptoms Musculoskeletal: Reports: No symptoms Skin: Reports: No symptoms Neurological: Reports: No symptoms Endocrine: Reports: No symptoms Hematologic/Lymphatic: Reports: No symptoms All Other Systems: Reviewed and Negative Past Medical History - Past Medical History Previously Healthy: Yes Endocrine: Reports: None Cardiovascular: Reports: Hypertension Respiratory: Reports: COPD Hematological: Reports: None Gastrointestinal: Reports: GERD Genitourinary: Reports: None Neuro/Psych: Reports: TIA Musculoskeletal: Reports: Arthritis, Joint Pain (oa) Cancer: Reports: None Other Pertinent Past Medical History: Alcoholism drinks 1/2 pint every 3 days. - Surgical History General Surgical History: Reports: Orthopedic ( right knee 2015) - Family History Family History: Reports: None - Social History Smoking Status: Current every day smoker, Light tobacco smoker Hx Substance Use: No Alcohol Screening: Occasionally Physical Exam - Physical Exam Appearance: Well-appearing, No pain distress, Well-nourished Eyes: JEREMY, EOMI, Conjunctiva clear ENT: Ears normal, Nose normal, Oropharynx normal Respiratory: Airway patent, Breath sounds clear, Breath sounds equal, Respirations nonlabored Cardiovascular: RRR, Pulses normal, No rub, No murmur GI/: Soft, Nontender, No masses, Bowel sounds normal, No Organomegaly Musculoskeletal: Normal strength, ROM intact, No edema, No calf tenderness Skin: Warm, Dry, Normal color Neurological: Sensation intact, Motor intact, Reflexes intact, Cranial nerves intact, Alert, Oriented Psychiatric: Affect appropriate, Mood appropriate Interpretation - Radiology Interpretation Radiology Interpretation By: Radiologist Radiology Results: No acute changes Physician Notification - Case Discussed Physician Notified: LEYLA HAYS Time of Notification: 15:30 (ADMITT) Admit To: Inpatient Critical Care Note - Critical Care Note Total Time (mins): 0 Course - Course Hematology/Chemistry: 08/05/17 14:08 08/05/17 14:08 Orders, Labs, Meds: Lab Review 08/05/17 14:08 WBC 13.29 H RBC 4.00 L Hgb 10.1 L Hct 30.9 L MCV 77.3 L MCH 25.3 L MCHC 32.7 RDW Coeff of Ti 19.0 H Plt Count 533 H Immature Gran % (Auto) 0.5 Neut % (Auto) 86.3 Lymph % (Auto) 7.6 L [place] % (Auto) 5.1 Eos % (Auto) 0.2 Baso % (Auto) 0.3 Immature Gran # (Auto) 0.1 Neut # 11.5 H Lymph # 1.0 [place] # 0.7 Eos # 0.0 Baso # 0.0 Sodium 133 L Potassium 2.7 L* Chloride 86 L Carbon Dioxide 32 H Anion Gap 17.7 BUN 19 H Creatinine 1.59 H Estimated GFR (MDRD) 54.00 BUN/Creatinine Ratio 11.94 Glucose 129 H Calcium 9.7 Total Bilirubin 1.04 AST 19 ALT 12 Alkaline Phosphatase 83 Total Protein 6.9 Albumin 3.2 L Globulin 3.7 Albumin/Globulin Ratio 0.86 Amylase 40 Lipase 20 Orders Category Date Time Status ADMIT PATIENT INPATIENT .TO [facility] (MONITORED BED) ADMISSION 08/05/17 15: 10 Active EKG-(IP & OP ONLY) DAILY CARDIO 08/06/17 06:00 Ordered EKG-(IP & OP ONLY) DAILY CARDIO 08/07/17 06:00 Ordered EKG-(IP & OP ONLY) DAILY CARDIO 08/08/17 06:00 Ordered ACTIVITY .Complete BR CARE 08/05/17 15:10 Active INTAKE & OUTPUT Q8HR CARE 08/05/17 15:10 Active TELEMETRY MONITORING TELE CARE 08/05/17 15:10 Active VITAL SIGNS Q8HR CARE 08/05/17 15:10 Active REGULAR DIET DIETARY 08/05/17 Dinner Ordered AMYLASE Stat LAB 08/05/17 14:08 Completed BASIC METABOLIC PANEL DAILY@0600 LAB 08/06/17 06:00 Ordered BASIC METABOLIC PANEL DAILY@0600 LAB 08/07/17 06:00 Ordered BASIC METABOLIC PANEL DAILY@0600 LAB 08/08/17 06:00 Ordered BASIC METABOLIC PANEL DAILY@0600 LAB 08/09/17 06:00 Ordered BASIC METABOLIC PANEL DAILY@0600 LAB 08/10/17 06:00 Ordered BASIC METABOLIC PANEL DAILY@0600 LAB 08/11/17 06:00 Ordered BASIC METABOLIC PANEL DAILY@0600 LAB 08/12/17 06:00 Ordered BASIC METABOLIC PANEL DAILY@0600 LAB 08/13/17 06:00 Ordered BASIC METABOLIC PANEL DAILY@0600 LAB 08/14/17 06:00 Ordered BASIC METABOLIC PANEL DAILY@0600 LAB 08/15/17 06:00 Ordered BASIC METABOLIC PANEL DAILY@0600 LAB 08/16/17 06:00 Ordered BASIC METABOLIC PANEL DAILY@0600 LAB 08/17/17 06:00 Ordered BASIC METABOLIC PANEL DAILY@0600 LAB 08/18/17 06:00 Ordered BASIC METABOLIC PANEL DAILY@0600 LAB 08/19/17 06:00 Ordered BASIC METABOLIC PANEL DAILY@0600 LAB 08/20/17 06:00 Ordered BASIC METABOLIC PANEL DAILY@0600 LAB 08/21/17 06:00 Ordered BASIC METABOLIC PANEL DAILY@0600 LAB 08/22/17 06:00 Ordered BASIC METABOLIC PANEL DAILY@0600 LAB 08/23/17 06:00 Ordered BASIC METABOLIC PANEL DAILY@0600 LAB 08/24/17 06:00 Ordered BASIC METABOLIC PANEL DAILY@0600 LAB 08/25/17 06:00 Ordered CBC W/ AUTO DIFF DAILY@0600 LAB 08/06/17 06:00 Ordered CBC W/ AUTO DIFF DAILY@0600 LAB 08/07/17 06:00 Ordered CBC W/ AUTO DIFF DAILY@0600 LAB 08/08/17 06:00 Ordered CBC W/ AUTO DIFF DAILY@0600 LAB 08/09/17 06:00 Ordered CBC W/ AUTO DIFF DAILY@0600 LAB 08/10/17 06:00 Ordered CBC W/ AUTO DIFF DAILY@0600 LAB 08/11/17 06:00 Ordered CBC W/ AUTO DIFF DAILY@0600 LAB 08/12/17 06:00 Ordered CBC W/ AUTO DIFF DAILY@0600 LAB 08/13/17 06:00 Ordered CBC W/ AUTO DIFF DAILY@0600 LAB 08/14/17 06:00 Ordered CBC W/ AUTO DIFF DAILY@0600 LAB 08/15/17 06:00 Ordered CBC W/ AUTO DIFF DAILY@0600 LAB 08/16/17 06:00 Ordered CBC W/ AUTO DIFF DAILY@0600 LAB 08/17/17 06:00 Ordered CBC W/ AUTO DIFF DAILY@0600 LAB 08/18/17 06:00 Ordered CBC W/ AUTO DIFF DAILY@0600 LAB 08/19/17 06:00 Ordered CBC W/ AUTO DIFF DAILY@0600 LAB 08/20/17 06:00 Ordered CBC W/ AUTO DIFF DAILY@0600 LAB 08/21/17 06:00 Ordered CBC W/ AUTO DIFF DAILY@0600 LAB 08/22/17 06:00 Ordered CBC W/ AUTO DIFF DAILY@0600 LAB 08/23/17 06:00 Ordered CBC W/ AUTO DIFF DAILY@0600 LAB 08/24/17 06:00 Ordered CBC W/ AUTO DIFF DAILY@0600 LAB 08/25/17 06:00 Ordered CBC W/ AUTO DIFF Stat LAB 08/05/17 14:08 Completed CMP [COMPREHENSIVE METABOLIC PANEL] Stat LAB 08/05/17 19:00 Ordered COMPREHENSIVE METABOLIC PANEL Stat LAB 08/05/17 14:08 Completed LIPASE Stat LAB 08/05/17 14:08 Completed Albuterol Sulfate [Proair Hfa] MEDS 08/05/17 15:11 Active 2 puff IH Q4H PRN Budesonide/Formoterol Fumarate [Symbicort 160-4.5 Mcg MEDS 08/05/17 21:00 Active Inhaler] 1 puff IH BID Pantoprazole Sodium [Protonix IV] MEDS 08/05/17 15:09 Discontinued 40 mg IVP ONCE STA Potassium Chloride [K-Dur] MEDS 08/05/17 15:30 Active 40 meq PO BIDWM Potassium Chloride [Potassium Chloride Premix Run] 10 MEDS 08/05/17 15:03 Active meq Premix 100 ml Water 1 bag IV ONCE Potassium Chloride [Potassium Chloride Premix Run] 100 MEDS 08/05/17 15:16 Discontinued ml IV .STK-MED Sodium Chloride 0.9% [Sodium Chloride] 1,000 ml MEDS 08/05/17 15:30 Active IV 75 mls/hr Sucralfate [Carafate] MEDS 08/05/17 15:09 Discontinued 1 gm PO ONCE STA Tiotropium Agenda [Spiriva] MEDS 08/06/17 09:00 Active [address] ABDOMEN/PELVIS WO CONTRAST Stat RADS 08/05/17 13:[address] CHEST W/O CONTRAST Stat RADS 08/05/17 13:47 Completed Medications Generic Name Dose Route Start Last Admin Trade Name Freq PRN Reason Stop Dose Admin Albuterol Sulfate 2 puff 08/05/17 15:11 Proair Hfa IH Q4H PRN Bronchospasm Amlodipine Besylate 10 mg 08/06/17 09:00 Norvasc PO DAILY JEREMIAH Budesonide/Formoterol Fumarate 1 puff 08/05/17 21:00 Symbicort 160-4.5 Mcg Inhaler IH BID JEREMIAH Potassium Chloride 10 meq/ 100 mls @ 100 mls/hr 08/05/17 15:03 08/05/17 15:42 Sterile Water IV 08/05/17 16:02 100 mls/hr ONCE STA Administration Sodium Chloride 1,000 mls @ 75 mls/hr 08/05/17 15:30 Sodium Chloride IV .[id number] JEREMIAH Pantoprazole Sodium 40 mg 08/06/17 06:30 Protonix PO QDAC JEREMIAH Potassium Chloride 40 meq 08/05/17 15:30 K-Dur PO BIDWM JEREMIAH Tiotropium Agenda 1 cap 08/06/17 09:00 Spiriva IH DAILY JEREMIAH Discontinued Medications Generic Name Dose Route Start Last Admin Trade Name Freq PRN Reason Stop Dose Admin Pantoprazole Sodium 40 mg 08/05/17 15:09 08/05/17 15:34 Protonix Iv IVP 08/05/17 15:10 40 mg ONCE STA Administration Sucralfate 1 gm 08/05/17 15:09 08/05/17 15:28 Carafate PO 08/05/17 15:10 1 gm ONCE STA Administration Vital Signs: Temp Pulse Resp BP Pulse Ox 08/05/17 13:32 97.9 F 93 H 16 90/54 L 95 Departure - Departure Time of Disposition: 15:55 Disposition: ADMITTED INPATIENT Discharge Problem: Abdominal pain, Hypokalemia Condition: Good Pt referred to PMD for follow-up: Yes (ADMITT) Allergies/Adverse Reactions: Allergies No Known Allergies Allergy (Verified 08/05/17 13:46) Home Medications: Ambulatory Orders Lansoprazole [Prevacid] 30 mg PO DAILY 10/30/15 Albuterol Sulfate [Proair Hfa] 2 puff IH Q4H PRN 10/04/16 Amlodipine Besylate [Norvasc] 10 mg PO DAILY 02/07/17
[2017-08-05] MEDS: K-DUR PO SCH ×2 (17:46→18:32)
[2017-08-05 18:07] VITALS: BMI 21.1
[2017-08-05] MEDS ORDERED: TORADOL IVP PRN (18:27)
[2017-08-05] MEDS ORDERED: POTASSIUM CHLORIDE PREMIX RUN 20 MEQ in PREMIX 100 ML WATER 1 BAG IV STA (18:39)
[2017-08-05] MEDS ORDERED: ZOFRAN 4 MG/2 ML IVP PRN (19:12)
[2017-08-05] MEDS ORDERED: POTASSIUM CHLORIDE 10 MEQ VIAL-ADDITIVE ONLY IV ONE (19:22)
[2017-08-05] MEDS: POTASSIUM CHLORIDE 20 MEQ VIAL-ADDITIVE ONLY IV ONE (19:32)
[2017-08-05] MEDS: ADDITIVE ONLY IV SCH (19:33)
[2017-08-05] MEDS: SODIUM CHLORIDE IV SCH (19:33)
[2017-08-05] MEDS: POTASSIUM CHLORIDE IV SCH (19:33)
[2017-08-05] MEDS ORDERED: K-DUR PO ONE (20:00)
[2017-08-05] MEDS: SYMBICORT 160-4.5 MCG INHALER IH SCH (20:46)
[2017-08-06 05:11] LABS: BASOPHILS % (AUTO) 0.4 % (0.0-3.0); EOSINOPHILS # (AUTO) 0.1 K/ul (0.0-0.7); EOSINOPHILS % (AUTO) 0.5 % (0.0-7.0); HEMOGLOBIN 10.1 g/dl (14.0-18.0); IMMATURE GRANULOCYTE % (AUTO) 0.4 % (0.0-5.0); LYMPHOCYTES % (AUTO) 10.8 (10.0-50.0); MEAN CORPUSCULAR HEMOGLOBIN 24.5 pg (27.0-31.0); MEAN CORPUSCULAR HGB CONC 31.6 (31.8-35.4); MEAN CORPUSCULAR VOLUME 77.7 fl (80.0-94.0); MONOCYTES # (AUTO) 0.7 K/uL (0.4-2.0); MONOCYTES % (AUTO) 7.1 (0-10); NEUTROPHILS # (AUTO) 7.7 K/ul (2.0-6.9); NEUTROPHILS % (AUTO) 80.8; PLATELET COUNT 567 10^3/uL (140-440); RED BLOOD COUNT 4.12 10^6/ul (4.70-6.10); WHITE BLOOD COUNT 9.54 K/ul (4.2-10.2)
[2017-08-06 05:46] LABS: ANION GAP 17.9; BUN/CREATININE RATIO 10.94; CALCIUM 9.3 mg/dL (8.2-10.2); CREATININE 1.37 mg/dL (0.60-1.10); POTASSIUM 3.9 mmol/L (3.5-5.1)
[2017-08-06 05:50] VITALS: BP 117/76; TEMP 98.3
[2017-08-06] MEDS ORDERED: POTASSIUM CHLORIDE 10 MEQ VIAL-ADDITIVE ONLY IV ONE (06:18)
[2017-08-06] MEDS ORDERED: POTASSIUM CHLORIDE 20 MEQ VIAL-ADDITIVE ONLY IV ONE (06:27)
[2017-08-06] MEDS: POTASSIUM CHLORIDE IV SCH (06:28)
[2017-08-06] MEDS: SODIUM CHLORIDE IV SCH (06:28)
[2017-08-06] MEDS: ADDITIVE ONLY IV SCH (06:28)
[2017-08-06] MEDS: POTASSIUM CHLORIDE 20 MEQ VIAL-ADDITIVE ONLY IV ONE (06:29)
[2017-08-06] MEDS ORDERED: PROTONIX PO SCH (06:30)
[2017-08-06] MEDS ORDERED: POTASSIUM CHLORIDE IV SCH (07:30)
[2017-08-06] MEDS ORDERED: ADDITIVE ONLY IV SCH (07:30)
[2017-08-06] MEDS ORDERED: SODIUM CHLORIDE IV SCH (07:30)
[2017-08-06] MEDS ORDERED: SPIRIVA IH SCH (09:00)
[2017-08-06] MEDS ORDERED: NORVASC PO SCH (09:00)
[2017-08-06] MEDS ORDERED: NON-FORMULARY MEDICATION (Amlodipine Besylate [Norvasc] 10 MG) PO SCH ×22 (09:00)
[2017-08-06] MEDS ORDERED: NON-FORMULARY MEDICATION (Lansoprazole [Prevacid] 30 MG) PO SCH ×22 (09:00)
[2017-08-06] MEDS: SYMBICORT 160-4.5 MCG INHALER IH SCH (09:17)
[2017-08-06] MEDS: K-DUR PO SCH (09:17)
--- NOTE | 2017-08-06 09:59 | PN ---
DATE OF SERVICE: 08/05/17 SUBJECTIVE: The patient is a 62 year old black male came to the emergency room with complaint of right upper quadrant epigastric area pain. The duration of pain 2- 3 days which is mild to moderate. No nausea or vomiting. The patient is heavy smoker and he is asking for pain medications for his abdominal pain. According to the Nursing staff the patient seeks for the pain medications. REVIEW OF SYSTEMS: CONSTITUTIONAL: No night sweats. No fatigue, malaise, lethargy. No fever or chills. HEENT: Eyes: No visual changes. No eye pain. No eye discharge. ENT: No runny nose. No epistaxis. No sinus pain. No sore throat. No odynophagia. No congestion. RESPIRATORY: No cough, no congestion. No hemoptysis. No shortness of breath. CARDIOVASCULAR: No angina symptoms. No CHF symptoms. No atypical chest pain for CAD. No palpitations. No orthopnea. GASTROINTESTINAL: No abdominal pain. No nausea or vomiting. No diarrhea or constipation. No hematemesis. No hematochezia. GENITOURINARY: No urgency. No frequency. No dysuria. No hematuria. No obstructive symptoms. No discharge. No pain. No significant abnormal bleeding. MUSCULOSKELETAL: No musculoskeletal pain; no joint swelling. NEUROLOGICAL: No headache. No neck pain. No syncope. No seizures. No dizziness. PSYCHIATRIC: Not anxious. No depression. No suicidal thoughts. No homicidal thoughts. SKIN: No rash. No lesions. No wounds. ENDOCRINE: No unexplained weight loss. No weight gain. HEMATOLOGIC/LYMPHATIC: No anemia. No purpura. No petechiae. No prolonged or excessive bleeding. No palpable lymph nodes. PHYSICAL EXAMINATION: GENERAL: The patient is oriented to time, place and person. VITAL SIGNS: Temperature 98, pulse 80, respiratory rate 15, blood pressure 130/ 80. HEENT: Head normocephalic, atraumatic. Eyes: Extraocular muscles are intact. Pupils are equal, round and reactive to light and accommodation. Ears: No lesions. Nose appeared normal. Throat: No exudate or erythema. NECK: Supple. No JVP, no carotid bruit. No lymphadenopathy or thyromegaly. LUNGS: Decreased breath sounds but clear to auscultation. Percussion note normal. Chest symmetrical. HEART: S1, S2, no S3. No murmurs. No cyanosis or clubbing. No ascites. Pulses: Dorsalis pedis and posterior tibial pulses +1 to +2 both sides. ABDOMEN: Soft. Nontender. Bowel sounds active. No CVA tenderness. No mass felt. EXTREMITIES: No edema. Full range of motion of all extremities, equal. NEUROLOGIC: No focal deficit. Cranial nerves II through XII are grossly intact. No headache, no double vision or headache. SKIN: Not dry. Intact. Turgor - normal. LYMPHATIC: No palpable lymph nodes/no lymphedema. MUSCULOSKELETAL: Normal joints with no swelling. Muscle tone is normal. ASSESSMENT: 1. Abdominal pain 2. By lab test the patient's potassium is 2.7 PLAN: 1. Give PO and IV Potassium supplements 2. Telemetry 3. For epigastric pain the patient will be got Protonix, Carafate, IV fluids 4. CT of the abdomen is reported normal by the ER doctor. The patient is high risk for peptic ulcer disease 5. Counseling for smoking done 6. So far the other lab tests are normal 7. Will do EKG and Telemetry because of Hypokalemia 8. Daily CBC and CMP TIME SPENT: More than 30 minutes. Plan and coordination of the patient's care discussed in the presence of nurse. REEMA
--- NOTE | 2017-08-11 08:17 | PN ---
DATE OF SERVICE: 08/06/17 SUBJECTIVE: The patient was seen and examined with the Nurse Practitioner. The patient's potassium is 3.9, improved a lot and no abdominal pain at all. The patient is advised to eat regularly. the patient is feeling better. REVIEW OF SYSTEMS: CONSTITUTIONAL: No night sweats. No fatigue, malaise, lethargy. No fever or chills. HEENT: Eyes: No visual changes. No eye pain. No eye discharge. ENT: No runny nose. No epistaxis. No sinus pain. No sore throat. No odynophagia. No congestion. RESPIRATORY: No cough, no congestion. No hemoptysis. No shortness of breath. CARDIOVASCULAR: No angina symptoms. No CHF symptoms. No atypical chest pain for CAD. No palpitations. No orthopnea. GASTROINTESTINAL: No abdominal pain. No nausea or vomiting. No diarrhea or constipation. No hematemesis. No hematochezia. GENITOURINARY: No urgency. No frequency. No dysuria. No hematuria. No obstructive symptoms. No discharge. No pain. No significant abnormal bleeding. MUSCULOSKELETAL: No musculoskeletal pain; no joint swelling. NEUROLOGICAL: No headache. No neck pain. No syncope. No seizures. No dizziness. PSYCHIATRIC: Not anxious. No depression. No suicidal thoughts. No homicidal thoughts. SKIN: No rash. No lesions. No wounds. ENDOCRINE: No unexplained weight loss. No weight gain. HEMATOLOGIC/LYMPHATIC: No anemia. No purpura. No petechiae. No prolonged or excessive bleeding. No palpable lymph nodes. PHYSICAL EXAMINATION: HEENT: Head normocephalic, atraumatic. Eyes: Extraocular muscles are intact. Pupils are equal, round and reactive to light and accommodation. Ears: No lesions. Nose appeared normal. Throat: No exudate or erythema. NECK: Supple. No JVD, no carotid bruit. No lymphadenopathy or thyromegaly. LUNGS: Clear to auscultation. Percussion note normal. Chest symmetrical. HEART: S1, S2, no S3. No murmurs. No cyanosis or clubbing. No ascites. Pulses: Dorsalis pedis and posterior tibial pulses +1 to +2 both sides. ABDOMEN: Soft. Nontender. Bowel sounds active. No CVA tenderness. No mass felt. EXTREMITIES: No edema. Full range of motion of all extremities, equal. NEUROLOGIC: No focal deficit. Cranial nerves II through XII are grossly intact. No headache, no double vision or headache. SKIN: Not dry. Intact. Turgor - normal. LYMPHATIC: No palpable lymph nodes/no lymphedema. MUSCULOSKELETAL: Normal joints with no swelling. Muscle tone is normal. LABS: The patient's chest x-ray is abnormal ASSESSMENT: 1. Hypokalemia resolved 2. Renal azotemia resolved 3. Anemia persists. PLAN: 1. Will have CT scan of the chest done. 2. Will be referred to pulmonary MD 3. Advised to see the Primary MD Dr. Thomas within 2-3 days. 4. Explained about the findings. 5. Patient strongly advised to quit alcohol and drugs. 6. Counseling for smoking done. CONDITION: Stable TIME SPENT: More than 30 minutes. Plan and coordination of the patient's care discussed in the presence of nurse. REEMA
--- NOTE | 2017-08-13 11:15 | SSS ---
DATE OF SERVICE: 08/06/17 (DATE OF DISCHARGE) (DATE OF ADMISSION 08/05/17) HISTORY OF PRESENT ILLNESS: The patient presented to the emergency room yesterday complaining of some nausea , vomiting and pain in the abdomen. Labs revealed that his potassium was 2.4. CT of the chest revealed that he had some new nodular densities on CT scan and recommended a repeat in 3 months. The patient is a long term smoker as well as has a long term history of alcohol abuse. He was previously seen in the emergency room one to two months ago with hypokalemia and was not admitted however he has not been on p.o. daily supplemental potassium. PAST MEDICAL HISTORY: 1. GERD 2. Cholelithiasis 3. Hypertension 4. COPD 5. History of TIA 6. Osteoarthritis 7. Chronic tobacco use 8. Chronic alcohol use which is persistent 9. Hypokalemia FAMILY HISTORY: Father had lung carcinoma; grandmother with diabetes; mother had coronary artery disease with [place]. Father at age 69. SOCIAL HISTORY: The patient is single, has a girlfriend that he sees regularly, lives alone. He is unemployed. He smokes at least one pack a day of cigarettes and drinks reportedly one pint of Vodka or more daily. He reports that his routine primary care provider is Dr. William santoyo [place] at the [facility]. ALLERGIES: NKDA MEDICATIONS: Norvasc 10 mg daily Symbicort 160-4.5 one puff b.i.d. Protonix 40 mg daily Spiriva one inhalation daily Zantac 150 mg twice a day Albuterol inhaler one to two puffs every 4 to 6 hours p.r.n. REVIEW OF SYSTEMS: CONSTITUTIONAL: Alert and oriented. No fever, no chills. No night sweats. No fatigue, malaise, lethargy. HEENT: Eyes: No visual changes. No eye pain. No eye discharge. No double vision. No blurred or loss of vision. ENT: Ears: Hearing is adequate. No runny nose. No epistaxis. No sinus pain. No sore throat. No odynophagia. No ear pain. No congestion. RESPIRATORY: No cough, no congestion. No hemoptysis. No shortness of breath. CARDIOVASCULAR: No angina symptoms. No CHF symptoms. No atypical chest pain for CAD. No palpitations. No orthopnea. GASTROINTESTINAL: Nausea has resolved. Abdominal pain has resolved since admission. No vomiting. No diarrhea or constipation. No hematemesis. No hematochezia. GENITOURINARY: No dysuria. No hematuria. No obstructive symptoms. No discharge. No pain. No significant abnormal bleeding. MUSCULOSKELETAL: History of osteoarthritis. No joint swelling or redness. NEUROLOGICAL: No headache. No ataxia. PSYCHIATRIC: Affect appears to be normal. Not anxious. No depression. No suicidal thoughts. No homicidal thoughts. SKIN: No rash. No lesions. No wounds. ENDOCRINE: No unexplained weight loss. No weight gain. HEMATOLOGIC/LYMPHATIC: No anemia. No purpura. No petechiae. No prolonged or excessive bleeding. No palpable lymph nodes. PHYSICAL EXAMINATION: GENERAL: The patient is an ill-appearing 62-year-old male in no apparent distress. HEENT: Head normocephalic, atraumatic. Face is symmetrical with no weakness. Eyes: Pupils are equal, round and reactive to light and accommodation. Ears: No lesions. Nose appeared normal. Mouth is unremarkable. Throat: No oropharynx erythema or exudate. . NECK: Supple. No JVD, no carotid bruit. No lymphadenopathy or thyromegaly. LUNGS: Clear to auscultation with diminished breath sounds bilaterally. No rhonchi, rales or wheezing. Percussion note normal. Chest symmetrical. HEART: Regular rate and rhythm. No murmurs, clicks or rubs. S1, S2, no S3. No cyanosis or clubbing. No ascites. Pulses: Dorsalis pedis and posterior tibial pulses +1 to +2 both sides. ABDOMEN: Soft. Nontender. Bowel sounds active times four quadrants. No hepatosplenomegaly. No guarding. No CVA tenderness. No mass felt. EXTREMITIES: No clubbing, no cyanosis. No joint swelling, no redness. No edema. Pedal pulses present. Full range of motion of all extremities, equal. NEUROLOGIC: The patient is alert and oriented times three. No focal deficit. Cranial nerves II through XII are grossly intact. No headache, no double vision or headache. SKIN: Not dry. Intact. Turgor - normal. LYMPHATIC: No palpable lymph nodes/no lymphedema. MUSCULOSKELETAL: Normal joints with no swelling. Muscle tone is normal. Old/present records reviewed Office records reviewed. LABS: Sodium 139, potassium 3.9, BUN 15, creatinine 1.37, hemoglobin 10.1, hematocrit 32, platelets 567, white count 9.5. PROGRESS NOTES: See EMR. Case Discussed with Attending Physician: Yes DIAGNOSES: 1. HYPOKALEMIA WHICH HAS RESOLVED 2. HYPERTENSION 3. CHRONIC AND PERSISTENT ALCOHOL ABUSE 4. CHRONIC TOBACCO ABUSE 5. COPD 6. GERD 7. PULMONARY NODULES PLAN: !. The patient was admitted and given aggressive potassium replacement via IV fluids. Today after 24 hours of the potassium replacement, his potassium is normal at 3.9 2. We will discharge him today on 08/06. 3. He will be discharged home on 20 mEq of potassium daily. 4. Education was provided regarding long-term effects of alcohol abuse. 5. CT scan reviewed and discussed regarding his nodular densities. 6. We will schedule repeat CT scan of the chest in 3 months. We will refer him to pulmonology in [place] and we will also set up a followup appointment with Dr. Thomas. 7. A prescription is given to him for potassium 20 mEq daily. 8. Smoking cessation information was also provided. 9. He is instructed to keep his appointment with Dr. Thomas next week. Vital signs on the day of discharge are stable: Temperature 98.3, pulse 97, respirations 20, BP 117/76, pulse ox 93%. TIME SPENT: More than 70 minutes. MTDD
== END 2017-08-06 10:43 | disposition home or self-care (01) ==
LOC: ED 13:32 → MEDSURG A 15:27 → INTOOBSV 15:27 → OBSVTOIN 15:27
PROVIDERS: ADMIT Internal Medicine; ATTEND Internal Medicine
DX: E87.6 Hypokalemia (principal); I10 Essential (primary) hypertension; F10.20 Alcohol dependence, uncomplicated; F17.200 Nicotine dependence, unspecified, uncomplicated; J44.9 Chronic obstructive pulmonary disease, unspecified; R91.8 Other nonspecific abnormal finding of lung field; K21.9 Gastro-esophageal reflux disease without esophagitis; R10.11 Right upper quadrant pain; R11.2 Nausea with vomiting, unspecified; R79.89 Other specified abnormal findings of blood chemistry; D64.9 Anemia, unspecified; Z86.73 Personal history of transient ischemic attack (TIA), and cerebral infarction without residual deficits; Z79.899 Other long term (current) drug therapy
CPT/HCPCS: 36415; 80048; 80053; 82150; 83690; 85025; 93005; 93010; 96365; 96375; 99284

== ENCOUNTER 2017-08-18 08:19 | Outpatient (CLI) ==
[2017-08-18 09:21] LABS: ALBUMIN 3.5 g/dL (3.4-5.0); ALBUMIN/GLOBULIN RATIO 0.71; ANION GAP 14.8; BILIRUBIN,TOTAL 0.52 mg/dL (0.00-1.20); BUN/CREATININE RATIO 12.03; CALCIUM 10.3 mg/dL (8.2-10.2); CREATININE 1.08 mg/dL (0.60-1.10); POTASSIUM 3.8 mmol/L (3.5-5.1); TOTAL PROTEIN 8.4 g/dL (5.8-8.1)
== END 2017-08-18 08:20 | disposition home or self-care (01) ==
LOC: LAB 08:19
PROVIDERS: ATTEND Family Medicine
DX: E87.6 Hypokalemia (principal)
CPT/HCPCS: 36415; 80053

== ENCOUNTER 2017-09-01 12:53 | Emergency (ER) ==
[2017-09-01 12:58] VITALS: BP 104/67; TEMP 98.5; BMI 20.4
--- NOTE | 2017-09-01 13:11 | ED.PDOC ---
General ED Provider: Dr. ELLEN LINDA Chief Complaint: Ankle Pain/Injury Stated Complaint: Right knee and ankle swelling and pain x 2 days. No known trauma. Similar symptoms in same leg 4 months ago. Doctor told him it was "inflammation" and treated him with a shot in his buttocks (steroid?) which resolved symptoms over a few days. Review of records reveals this has happened multiple times in the past. Dx'd as joint pain, arthritis, and bursitis. Time Seen by Physician: 13:06 Mode of Arrival: Walk-In Information Source: Patient Exam Limitations: No limitations Primary Care Provider: GIOVANNI SIDHU Nursing and Triage Documentation Reviewed and Agree: Yes Musculoskeletal Complaint Exam - Lower Extremity Complaint/Exam Location of Pain: Reports: Right, Ankle, Knee Mechanism of Injury: Reports: No known trauma Onset/Duration: 2 days Symptoms Are: Still present Onset of Pain: Reports: Immediate Initial Severity: Mild Current Severity: Moderate Location: Reports: Discrete Character: Reports: Aching, Throbbing Alleviating: Reports: Rest Aggravating: Reports: Movement, Weight bearing, Prolonged standing Able to Bear Weight: Yes (but increases pain) Associated Signs and Symptoms: Reports: Swelling, Redness Related History: Denies: Similar episode (4 months ago) DVT Risk Factors: Reports: Smoking Septic Arthritis Risk Factors: Reports: Preexisting joint disease ( osteoarthritis) Related Surgical History: Reports: None Lower Extremity Findings: Present: Swelling, Erythema, Warmth, Limited range of motion (secondary to pain) NV Bundle Intact Distal to Injury: Yes Compartment Syndrome Risk Factors: Present: Pain Patrick's Sign Present: No Differential Diagnoses: Arthritis Review of Systems - Review Of Systems Constitutional: Reports: No symptoms Respiratory: Reports: No symptoms Cardiac: Reports: No symptoms Musculoskeletal: Reports: Joint pain, Joint swelling Skin: Reports: Change in color (mild erythema of swollen areas of right ankle and knee) Neurological: Reports: No symptoms All Other Systems: Reviewed and Negative Past Medical History - Past Medical History Previously Healthy: Yes Endocrine: Reports: None Cardiovascular: Reports: Hypertension Respiratory: Reports: COPD Hematological: Reports: None Gastrointestinal: Reports: GERD Genitourinary: Reports: None Neuro/Psych: Reports: TIA Musculoskeletal: Reports: Arthritis, Joint Pain (oa) Cancer: Reports: None Other Pertinent Past Medical History: Alcoholism drinks 1/2 pint every 3 days. - Surgical History General Surgical History: Reports: Orthopedic ( right knee 2015) - Family History Family History: Reports: None - Social History Smoking Status: Current every day smoker, Light tobacco smoker Hx Substance Use: No Alcohol Screening: Occasionally Lives: Alone - Immunizations Tetanus Shot up to Date: No Influenza Vaccine within 12 Months: No Pneumococcal Vaccine up to Date: No Physical Exam - Physical Exam Appearance: Well-appearing, No pain distress, Well-nourished, Thin Ill-appearing: None Pain Distress: None Respiratory: Airway patent, Breath sounds clear, Breath sounds equal, Respirations nonlabored Cardiovascular: RRR, Pulses normal, No rub, No murmur Musculoskeletal: Normal strength, No edema, No calf tenderness, Limited ROM ( right knee is mildly swollen and moderately tender bilaterally and posteriorly, right ankle is swollen and tender about both malleoli with inc pain with attempted flexion, internal. and external rotation.) Skin: Warm, Dry, Normal color Neurological: Sensation intact, Motor intact, Reflexes intact, Cranial nerves intact, Alert, Oriented Psychiatric: Affect appropriate, Mood appropriate Critical Care Note - Critical Care Note Total Time (mins): 0 Course - Course Vital Signs: Temp Pulse Resp BP Pulse Ox 09/01/17 12:56 98.5 F 110 H 16 104/67 95 Departure - Departure Time of Disposition: 13:31 Disposition: HOME SELF-CARE Discharge Problem: Right ankle pain Qualifiers: Chronicity: unspecified Qualified Code(s): M25.571 - Pain in right ankle and joints of right foot Right knee pain Qualifiers: Chronicity: unspecified Qualified Code(s): M25.561 - Pain in right knee Instructions: Knee Pain (ED), Arthralgia (ED) Condition: Good Pt referred to PMD for follow-up: Yes (follow up with doctor regarding recurrent joint pain) Additional Instructions: Avoid weight-bearing on right leg for one week or pain resolves. Allergies/Adverse Reactions: Allergies No Known Allergies Allergy (Verified 09/01/17 12:58) Home Medications: Ambulatory Orders Lansoprazole [Prevacid] 30 mg PO DAILY 10/30/15 Albuterol Sulfate [Proair Hfa] 2 puff IH Q4H PRN 10/04/16 Amlodipine Besylate [Norvasc] 10 mg PO DAILY 02/07/17 Potassium Chloride [K-Dur] 20 meq PO DAILY #30 tab 08/06/17 Acetaminophen with Codeine [Tylenol #3 Tab] 1 tab PO Q4H PRN #20 tablet Disposition Discussed With: Patient
[2017-09-01] MEDS ORDERED: SOLU-MEDROL 125 MG IM STA (13:26)
== END 2017-09-01 13:55 | disposition home or self-care (01) ==
LOC: ED 12:53
DX: M25.571 Pain in right ankle and joints of right foot (principal); M25.561 Pain in right knee; M25.461 Effusion, right knee; M25.471 Effusion, right ankle; F17.210 Nicotine dependence, cigarettes, uncomplicated
CPT/HCPCS: 96372; 99282

== ENCOUNTER 2017-10-13 09:42 | Outpatient (CLI) ==
[2017-10-13 13:21] VITALS: BMI 19.8
== END 2017-10-13 09:43 | disposition critical access hospital (66) ==
LOC: AMBL 09:42
PROVIDERS: ATTEND Internal Medicine
DX: M54.9 Dorsalgia, unspecified (principal); M54.2 Cervicalgia; R11.10 Vomiting, unspecified

== ENCOUNTER 2017-10-13 09:53 | Inpatient (IN) ==
--- NOTE | 2017-10-13 10:27 | DI ---
Exam: Two x-rays of the chest. Comparison: 08/05/2017. CT exam. Reason for exam: Cough. FINDINGS: Layering density in the right lung base with patchy airspace opacities and linear atelecta sis. The cardiac silhouette is not enlarged. There is obscuration of the right hemidiaphragm. The imaged osseous structures appear grossly unremarkable without acute fracture. Impression: Right lower lobe pleural effusion with overlying atelectasis/pneumonia.
[2017-10-13 10:53] LABS: BASOPHILS % (AUTO) 0.4 % (0.0-3.0); EOSINOPHILS # (AUTO) 0.1 K/ul (0.0-0.7); HEMATOCRIT 32.1 % (42.0-52.0); IMMATURE GRANULOCYTE % (AUTO) 0.4 % (0.0-5.0); LYMPHOCYTES % (AUTO) 10.2 (10.0-50.0); MEAN CORPUSCULAR HEMOGLOBIN 23.9 pg (27.0-31.0); MEAN CORPUSCULAR HGB CONC 31.2 (31.8-35.4); MEAN CORPUSCULAR VOLUME 76.6 fl (80.0-94.0); MONOCYTES # (AUTO) 0.8 K/uL (0.4-2.0); MONOCYTES % (AUTO) 8.2 (0-10); NEUTROPHILS # (AUTO) 7.9 K/ul (2.0-6.9); NEUTROPHILS % (AUTO) 79.8; PLATELET COUNT 689 10^3/uL (140-440); RED BLOOD COUNT 4.19 10^6/ul (4.70-6.10); WHITE BLOOD COUNT 9.85 K/ul (4.2-10.2)
[2017-10-13 11:15] LABS: ALBUMIN/GLOBULIN RATIO 0.63; ANION GAP 14.4; BILIRUBIN,TOTAL 0.7 mg/dL (0.00-1.20); BUN/CREATININE RATIO 10.07; CALCIUM 10.1 mg/dL (8.2-10.2); CREATININE 1.39 mg/dL (0.60-1.10); POTASSIUM 3.4 mmol/L (3.5-5.1); TOTAL PROTEIN 7.8 g/dL (5.8-8.1); TROPONIN I 0.019 ng/ml (0.0000-0.4000)
--- NOTE | 2017-10-13 11:17 | ED.PDOC ---
General ED Provider: Dr. GARY KATHLEEN Chief Complaint: Back Pain Stated Complaint: chest pain Time Seen by Physician: 10:00 (chest pain, neck pain) Mode of Arrival: Ambulance Information Source: Patient Exam Limitations: No limitations Primary Care Provider: GIOVANNI SIDHU Nursing and Triage Documentation Reviewed and Agree: Yes Cardiovascular Complaint Exam - Chest Pain Complaint/Exam Onset: Gradual Duration: 1 day Symptoms Are: Resolved Timing: Intermittent Length of Chest Pain Episodes: 10 min presently no pain no trauma has chronic same type of pain Initial Severity: Mild Current Severity: None Location: Reports: Midsternal Pain Radiates: Reports: Back (lumbar pain ) Character: Reports: Dull Aggravating: Reports: None Alleviating: Reports: Rest, Spontaneous resolution Associated Signs and Symptoms: Reports: Nausea, Back pain Related History: Reports: Similar episode Related Surgical History: Reports: None History of Healthcare-Acquired Pneumonia: Reports: No AMI/ACS Risk Factors: Reports: Sedentary, Hypertension, Smoking TAD Risk Factors: Reports: Hypertension Pulmonary Embolism Risk Factors: Reports: Bedrest, Smoking Prior Care for this Complaint: Yes (angina ) Recent Stress Test: No Recent Echo/LV Function: No (per pt report) JVD Present: No Subcutaneous Emphysema Present: No Diminshed Breath Sounds: No Reproducible Chest Wall Pain: No Bilateral Pulses Present: Yes Unequal Pulses Noted: No If Risk Factors for AMI/ACS Consider: EKG, Cardiac Enzymes, Serial Studies Documents Reviewed: Labs, Imaging, EKG Mortgage Operations Manager Consulted: No Differential Diagnoses: Stable Angina, Chest Wall Pain, GI Diseasae, Lower Resp. Infection Quality Indicators For Acute CT or Cardiac Chest Pain: EKG in 10min. Quality Indicator For Non-Traumatic Chest Pain/Syncope: EKG Performed Review of Systems - Review Of Systems Constitutional: Reports: Malaise, Weakness, Loss of appetite Eyes: Reports: No symptoms Ears, Nose, Mouth, Throat: Reports: No symptoms Respiratory: Reports: Cough Cardiac: Reports: Chest pain GI: Reports: No symptoms : Reports: No symptoms Musculoskeletal: Reports: Back pain, Neck pain Skin: Reports: No symptoms Neurological: Reports: No symptoms Endocrine: Reports: No symptoms Hematologic/Lymphatic: Reports: No symptoms All Other Systems: Reviewed and Negative Past Medical History - Past Medical History Previously Healthy: Yes Endocrine: Reports: None Cardiovascular: Reports: Hypertension Respiratory: Reports: COPD Hematological: Reports: None Gastrointestinal: Reports: GERD Genitourinary: Reports: None Neuro/Psych: Reports: TIA Musculoskeletal: Reports: Arthritis, Joint Pain (oa) Cancer: Reports: None Other Pertinent Past Medical History: Alcoholism drinks 1/2 pint every 3 days. - Surgical History General Surgical History: Reports: Orthopedic ( right knee 2016 may) - Family History Family History: Reports: None - Social History Smoking Status: Current every day smoker, Light tobacco smoker Hx Substance Use: No Alcohol Screening: Occasionally - Immunizations Influenza Vaccine within 12 Months: No Pneumococcal Vaccine up to Date: No Physical Exam - Physical Exam Appearance: Well-appearing, No pain distress, Well-nourished Eyes: JEREMY, EOMI, Conjunctiva clear ENT: Ears normal, Nose normal, Oropharynx normal Respiratory: Airway patent, Breath sounds clear, Breath sounds equal, Respirations nonlabored Cardiovascular: RRR, Pulses normal, No rub, No murmur GI/: Soft, Nontender, No masses, Bowel sounds normal, No Organomegaly Musculoskeletal: Normal strength, ROM intact, No edema, No calf tenderness Skin: Warm, Dry, Normal color Neurological: Sensation intact, Motor intact, Reflexes intact, Cranial nerves intact, Alert, Oriented Psychiatric: Affect appropriate, Mood appropriate Interpretation - Radiology Interpretation Radiology Interpretation By: Radiologist Radiology Results: Positive (RLL INFILTRATE) - Global Marketing Operations Manager Rate: Normal Rhythm: Sinus Ectopy: None - EKG Interpretation Rate: Normal Rhythm: Sinus Ectopy: None Hollis: NL ST Segment: Normal Re-Evaluation - Re-Evaluation Time of Re-Evaluation: 10:40 Status: Improved Vital Signs Stable: Yes Pain Level: 0 Appearance: NAD Lungs: Clear Skin: Warm and Dry Neuro: Alert and Oriented X3 CV: RRR - Re-Evaluation Time of Re-Evaluation: 11:46 Status: Improved Vital Signs Stable: Yes Pain Level: 0 Appearance: NAD Skin: Warm and Dry Neuro: Alert and Oriented X3 CV: RRR Physician Notification - Case Discussed Physician Notified: hospitalist Time of Notification: 12:00 Critical Care Note - Critical Care Note Total Time (mins): 0 Course - Course Hematology/Chemistry: 10/13/17 10:45 10/13/17 10:45 Orders, Labs, Meds: Lab Review 10/13/17 10/13/17 10:45 10:45 WBC 9.85 RBC 4.19 L Hgb 10.0 L Hct 32.1 L MCV 76.6 L MCH 23.9 L MCHC 31.2 L RDW Coeff of Ti 17.4 H Plt Count 689 H Immature Gran % (Auto) 0.4 Neut % (Auto) 79.8 Lymph % (Auto) 10.2 [place] % (Auto) 8.2 Eos % (Auto) 1.0 Baso % (Auto) 0.4 Immature Gran # (Auto) 0.0 Neut # 7.9 H Lymph # 1.0 [place] # 0.8 Eos # 0.1 Baso # 0.0 Sodium 142 Potassium 3.4 L Chloride 99 Carbon Dioxide 32 H Anion Gap 14.4 BUN 14 Creatinine 1.39 H Estimated GFR (MDRD) 63.00 BUN/Creatinine Ratio 10.07 Glucose 102 Calcium 10.1 Total Bilirubin 0.70 AST 34 ALT 10 L Alkaline Phosphatase 125 H Total Creatine Kinase 44 Troponin I 0.0190 Total Protein 7.8 Albumin 3.0 L Globulin 4.8 Albumin/Globulin Ratio 0.63 Orders Category Date Time Status EKG-(ED ONLY) Stat CARDIO 10/13/17 10:19 Completed ED IV/MEDIPORT/POWERPORT .ONCE EMERGENCY 10/13/17 11:43 Active BLOOD CULTURE (ED ONLY) Stat LAB 10/13/17 Ordered CBC W/ AUTO DIFF Stat LAB 10/13/17 10:45 Completed COMPREHENSIVE METABOLIC PANEL Stat LAB 10/13/17 10:45 Completed CREATINE KINASE Stat LAB 10/13/17 10:45 Completed TROPONIN I Stat LAB 10/13/17 10:45 Completed 0.9 % Sodium Chloride [Saline Flush] MEDS 10/13/17 11:43 Ordered 1 syr IVF PRN PRN Ceftriaxone Sodium [Rocephin] 1 gm MEDS 10/13/17 11:44 Active 0.9 % Sodium Chloride [Sodium Chloride] 50 ml IV ONCE CHEST, 2 VIEWS PA & LAT Stat RADS 10/13/17 10:08 Completed Medications Generic Name Dose Route Start Last Admin Trade Name Freq PRN Reason Stop Dose Admin Ceftriaxone Sodium 1 gm/ 50 mls @ 75 mls/hr 10/13/17 11:44 Sodium Chloride IV 10/13/17 12:23 ONCE STA Sodium Chloride 1 syr 10/13/17 11:43 Saline Flush IVF PRN PRN To flush IV Vital Signs: Temp Pulse Resp BP Pulse Ox 10/13/17 09:55 97.7 F 100 H 20 108/73 98 SEBASTIAN Risk Score SEBASTIAN Risk Score: Risk Score Odds of by 30D 0 0.1 (0.1-0.2) 1 0.3 (0.2-0.3) 2 0.4 (0.3-0.5) 3 0.7 (0.6-0.9) 4 1.2 (1.0-1.5) 5 2.2 (1.9-2.6) 6 3.0 (2.5-3.6) 7 4.8 (3.8-6.1) Departure - Departure Time of Disposition: 12:00 Disposition: ADMITTED INPATIENT Discharge Problem: Chest pain Qualifiers: Chest pain type: unspecified Qualified Code(s): R07.9 - Chest pain, unspecified Pneumonia Qualifiers: Pneumonia type: due to unspecified organism Instructions: Angina (ED), Thoracic Pain (ED), Noncardiac Chest Pain (ED), Chest Wall Pain (ED) Condition: Good Pt referred to PMD for follow-up: Yes Additional Instructions: Please call your Family Physician as soon as possible to schedule a follow-up appointment. Allergies/Adverse Reactions: Allergies No Known Allergies Allergy (Verified 09/01/17 12:58) Home Medications: Ambulatory Orders Albuterol Sulfate [Proair Hfa] 2 puff IH Q4H PRN 10/04/16 Amlodipine Besylate [Norvasc] 10 mg PO DAILY 02/07/17 Omeprazole [Prilosec] 20 mg PO QDAC 10/13/17
[2017-10-13] MEDS ORDERED: ROCEPHIN 1 GM in SODIUM CHLORIDE 50 ML IV STA (11:44)
[2017-10-13] MEDS ORDERED: PROAIR HFA IH PRN (11:49)
[2017-10-13] MEDS ORDERED: ROCEPHIN ONE (12:12)
[2017-10-13] MEDS: SODIUM CHLORIDE 1,000 ML IV SCH (12:47)
[2017-10-13 13:21] VITALS: BMI 19.8
[2017-10-13] MEDS: SOLU-MEDROL 40 MG IVP SCH ×2 (14:25→20:49)
[2017-10-13] MEDS: MORPHINE 2 MG/ML SYRINGE IVP PRN (15:21)
[2017-10-13] MEDS ORDERED: ZOFRAN 4 MG/2 ML IVP PRN (18:30)
[2017-10-13] MEDS: PROTONIX PO SCH (18:49)
[2017-10-13] MEDS: DUONEB NEB SCH (19:00)
[2017-10-14] MEDS: MORPHINE 2 MG/ML SYRINGE IVP PRN (00:55)
[2017-10-14] MEDS: SODIUM CHLORIDE 1,000 ML IV SCH (01:47)
[2017-10-14 02:10] LABS: BASOPHILS % (AUTO) 0.1 % (0.0-3.0); HEMATOCRIT 31.1 % (42.0-52.0); HEMOGLOBIN 9.8 g/dl (14.0-18.0); IMMATURE GRANULOCYTE % (AUTO) 0.3 % (0.0-5.0); LYMPHOCYTES # (AUTO) 0.6 K/uL (0.60-3.4); LYMPHOCYTES % (AUTO) 6.1 (10.0-50.0); MEAN CORPUSCULAR HEMOGLOBIN 23.8 pg (27.0-31.0); MEAN CORPUSCULAR HGB CONC 31.5 (31.8-35.4); MEAN CORPUSCULAR VOLUME 75.7 fl (80.0-94.0); MONOCYTES # (AUTO) 0.1 K/uL (0.4-2.0); MONOCYTES % (AUTO) 0.7 (0-10); NEUTROPHILS # (AUTO) 8.6 K/ul (2.0-6.9); NEUTROPHILS % (AUTO) 92.8; PLATELET COUNT 632 10^3/uL (140-440); RED BLOOD COUNT 4.11 10^6/ul (4.70-6.10); WHITE BLOOD COUNT 9.21 K/ul (4.2-10.2)
[2017-10-14 02:29] LABS: ALBUMIN 2.7 g/dL (3.4-5.0); ALBUMIN/GLOBULIN RATIO 0.54; ANION GAP 15.4; BILIRUBIN,TOTAL 0.49 mg/dL (0.00-1.20); BUN/CREATININE RATIO 10.37; CALCIUM 9.4 mg/dL (8.2-10.2); CREATININE 1.06 mg/dL (0.60-1.10); POTASSIUM 3.4 mmol/L (3.5-5.1); TOTAL PROTEIN 7.7 g/dL (5.8-8.1)
[2017-10-14] MEDS: DUONEB NEB SCH ×3 (05:11→14:02)
[2017-10-14] MEDS: PROTONIX PO SCH (05:34)
[2017-10-14] MEDS: SOLU-MEDROL 40 MG IVP SCH ×2 (05:34→13:44)
[2017-10-14] MEDS ORDERED: PRILOSEC PO SCH (06:30)
[2017-10-14] MEDS ORDERED: NORVASC PO SCH (09:00)
[2017-10-14] MEDS ORDERED: ROCEPHIN 1 GM in SODIUM CHLORIDE 50 ML IV SCH (09:00)
[2017-10-14] MEDS ORDERED: SPIRIVA IH SCH (09:00)
[2017-10-14] MEDS ORDERED: NON-FORMULARY MEDICATION (Amlodipine Besylate [Norvasc] 10 MG) PO SCH ×22 (09:00)
[2017-10-14 09:17] LABS: AMYLASE 49 U/L (25-115); LIPASE 8 U/L (8-78)
--- NOTE | 2017-10-14 13:52 | CT ---
EXAM: CT chest without contrast HISTORY: Follow-up right lung nodule COMPARISON: CT chest 08/05/2017, 02/09/2017 and multiple prior chest x-rays TECHNIQUE: Serial axial images of the chest were obtained from the lung apices to the upper abdomen without contrast. These were viewed in multiple planes. FINDINGS: The thyroid is normal. The visualized vessels are unremarkable without aneurysm or stenos is. The heart is normal in size without pericardial effusion. There are no pathologically enlarged mediastinal or hilar lymph nodes. There is moderate amount of debris throughout the esophagus. There is circumferential pleural thickening which extends along the pericardial reflection. There cruz s been increase in right pleural effusion which is above that of simple fluid with minimal pleural th ickening. There is scattered areas of gas in the pleural space as seen on axial image 47 and 41. Ir regular pleural thickening throughout the right lung is worsened in comparison to prior study. There is emphysematous disease noted bilaterally. The airways are patent. The soft tissues in the upper abdomen are unremarkable. The osseous structures demonstrate stable graham perior endplate compression deformity at T10. IMPRESSION: 1. Diffuse irregular pleural thickening circumferentially on the right with small right hydropneumot horax. This has significantly progressed since prior exam. Findings are concerning for neoplasm. Soft tissue sampling is recommended to further evaluate. 2. Large amount of debris throughout the esophagus is mildly enlarged. 3. Moderate to severe chronic obstructive pulmonary disease changes. 4. Stable superior endplate compression deformity at T10.
[2017-10-14 14:56] VITALS: BP 128/64; TEMP 98.6
--- NOTE | 2017-10-14 15:07 | HP ---
DATE OF SERVICE: 10/13/17 CHIEF COMPLAINT: Back pain HISTORY OF PRESENT ILLNESS: 62 year old male who was recently discharge from the [facility] after a lengthy hospitalization and found to have a lung nodule. Supposed to go and see the lung doctor but he missed his appointment. He comes here to the emergency room with 3-4 days onset of the midback pain, hurts to breath, cough and congestion. The patient was seen by Dr. Brown in the emergency room and did show some atelectasis and pneumonia. The patient is admitted to the hospital for the IV antibiotics and the breathing treatments for the pleurisy. REVIEW OF SYSTEMS: CONSTITUTIONAL: No fever, no chills. Weakness and tiredness. HEENT: Normal. ENDOCRINE: No weight gain; no weight loss. CVS: No chest pain. No PND, no orthopnea. Shortness of breath. No PND, no orthopnea. RESPIRATORY: Cough, no congestion. No hemoptysis. GI: No nausea, no vomiting. No abdominal pain. No melena. : No hematuria. No polyuria. MUSCULOSKELETAL: No joint swelling. Back pain. PSYCHIATRIC: Not anxious. No depression. No suicidal thoughts. No homicidal thoughts. SKIN: Intact, no open lesions. PAST MEDICAL HISTORY: Hypertension TIA COPD with lung nodule GERD Alcohol use Substance use PAST SURGICAL HISTORY: None PERSONAL HISTORY: The patient does smoke and has a problem with the alcohol. MEDICATIONS: Spiriva ProAir Norvasc Prilosec ALLERGIES: No known drug allergies PHYSICAL EXAMINATION: V/S: Blood pressure 108/73, respiratory rate 20, heart rate 100 and temperature 97.7 with saturation 98 on the room air. GENERAL: Cachetic male laying in the bed and not in any distress and complains about the midback pain. HEENT: Atraumatic, normocephalic. No scleral icterus. Pallor positive. Mucosa dry. No icterus. NECK: Supple. No JVD, no bruit. No lymphadenopathy. No thyromegaly. HEART: S1, S2 normal. No murmur. No cyanosis or clubbing. No ascites. LUNGS: Decreased and basilar crackles. Mild expiratory wheezing on the right more than the left. No rales or rhonchi. ABDOMEN: Soft, nontender. Bowel sounds are active. No CVA tenderness. No rigidity or guarding. EXTREMITIES: No cyanosis, clubbing or pedal edema. MUSCULOSKELETAL: Normal joints, no swelling. NEUROLOGIC: The patient is awake and alert and oriented times three. SKIN: Intact; no open lesions. LYMPHATIC: No lymph nodes palpable. LABS: WBC 9.85, hgb 10.0, hct 32.1, plt count 689, sodium 142, potassium 3.4, chloride 99, bicarb 32, BUN 14, creatinine 1.39. ASSESSMENT: 1. Community acquired pneumonia 2. History of lung nodule 3. History of TIA 4. Hypertension 5. GERD 6. Substance use. PLAN: 1. Admit patient to the regular floor 2. CBC and CMP today and daily 3. Cardiac enzymes and Troponin 4. Solu-Medrol 40mg Q 8 hours 5. Rocephin 1 gram daily 6. Morphine for the pain along with Zofran TIME SPENT: MORE THAN 70 minutes MTDD
--- NOTE | 2017-10-14 15:14 | PN ---
DATE OF SERVICE: 10/14/17 SUBJECTIVE: The patient admitted with community acquired pneumonia. The patient was recently in the hospital. CT scans here showed lung nodule. It showed nodular densities in the right upper lung, questionable for neoplasm or infection. Recommended to repeat CT scan but the patient did not do repeat CT scan or have any followup with the lung doctor in [place]. The patient has a followup with them on October 15. He has some coughing, Morphine has been helping with the pain. REVIEW OF SYSTEMS: CONSTITUTIONAL: No fever, no chills. HEENT: Normal. ENDOCRINE: No weight gain, no weight loss. CVS: No angina symptoms. No CHF symptoms. No palpitations. No atypical chest pain for CAD. No shortness of breath. No PND, no orthopnea. RESPIRATORY: No cough, no hemoptysis. GI: No nausea, no vomiting. No abdominal pain. : No hematuria. No polyuria. MUSCULOSKELETAL:. No joint swelling. PSYCHIATRIC: Not anxious. No depression. No suicidal thoughts. No homicidal thoughts. SKIN: Intact. No rash. PHYSICAL EXAMINATION: V/S: BP 111/71, respiratory rate 16, heart rate 100, temperature is 98.8, saturation 94 on room air. GENERAL: Cachetic male lying in bed not in any distress. HEENT: Normocephalic, atraumatic. Mucosa dry. NECK: Supple. No JVD, no carotid bruit. No lymphadenopathy. LUNGS: Basilar crackles are present bilaterally. Clear to auscultation. No rales or rhonchi. HEART: S1, S2 normal. No S3. No murmur, gallop or regurgitation. ABDOMEN: Soft, nontender. Bowel sounds active. No rigidity. No rebound or guarding. No CVA tenderness. EXTREMITIES: No clubbing, cyanosis or pedal edema. MUSCULOSKELETAL: No joint swelling. NEUROLOGIC: Awake, alert, oriented times three. No focal deficit. LYMPHATIC: No lymph nodes palpable. SKIN: Intact. LABS: White count 9.21, hemoglobin 9.8, hematocrit 31.1, platelet count 632. Sodium 140, potassium 3.4, chloride 102, bicarb 26, BUN 11, creatinine 1.06, glucose 137. ASSESSMENT: 1. COMMUNITY ACQUIRED PNEUMONIA WITH RIGHT-SIDED PLEURAL EFFUSION 2. HISTORY OF LUNG NODULE 3. HISTORY OF TIA 4. SUBSTANCE USE 5. NICOTINE USE PLAN: 1. Will get a CT scan with IV contrast 2. Replace potassium 3. Duonebs 4. Rocephin 5. Will follow the patient in daily rounds ADDENDUM: The patient had CT scan of the chest today with IV contrast which is showing diffuse irregular pleural thickening, circumferential on the right with a small right hydropneumothorax. This has significantly progressed since the prior exam. Findings are concerning for a neoplasm. Soft tissue sampling is recommended for further evaluation. There is a thoracic compression deformity. We will be communicating with transfer center in [place] for transfer to supervisor in charge. TIME SPENT: More than 30 minutes MTDD
--- NOTE | 2017-10-21 13:42 | DS ---
DATE OF SERVICE: 10/14/17 FINAL DIAGNOSIS: 1. Right sided hydropneumothorax 2. Lung nodule questionable for malignancy 3. Right lower lobe pneumonia with pleural effusion 4. Hypertension 5. TIA 6. COPD 7. Alcohol use 8. Substance use DISCHARGE INSTRUCTIONS: Discharge the patient to [facility] under the case of Dr. Estrada. Continue Antibiotic Rocephin, DUO NEBS and Solu-Medrol. IV fluids. Daily I&O's. Morphine for the pain. MEDICATIONS AT DISCHARGE: Spiriva 18mch IH daily ProAir two puffs IH Q 4 hours PRN Norvasc 10mg Po daily Prilosec 20mg QDAC NEW PRESCRIPTIONS: Prednisone 10mg PO twice a day Keflex 500mg PO twice a day DIET INSTRUCTIONS: Cardiac and healthy ACTIVITY: As much as tolerated. SMOKING: Counseling for smoking done. DISEASE SPECIFIC EDUCATION: Right lung nodule with history of smoking Explained the risk of malignancy and verbalized understanding. HOSPITAL COURSE: Timur Duval who is a 62 year old male was recently at the [facility] in August where he was found to have a lung nodule for which the patient has to go to the [facility] and have it evaluated but the patient did not end up going there. Started having cough, congestion and back pain came to the emergency room and was seen by Dr. Brown. Chest x-ray was done showed the right sided atelectasis and pleural effusion. At that time the patient was admitted to the hospital with the pneumonia and the pleural effusion. As patient has history of lung nodule we did the CT scan with IV contrast the next day which did show the hydropneumothorax with the mass susceptible for the neoplasm. At that time Dr. Estrada being consulted as the patient was needing extensive workup and possible bronchoscopy or biopsy of the lesion and better care for the hydropneumothorax at the higher facility and they were courteous enough to accept the patient and the patient being transferred to the [facility]. TIME SPENT: MORE THAN 60 MINUTES MTDD
== END 2017-10-14 17:10 | disposition short-term general hospital (02) | DRG 186 ==
LOC: ED 09:53 → MEDSURG A 12:09
PROVIDERS: ADMIT Emergency Medicine; ATTEND Emergency Medicine
DX: J94.2 Hemothorax (principal); J18.1 Lobar pneumonia, unspecified organism; J98.11 Atelectasis; R07.9 Chest pain, unspecified; R91.1 Solitary pulmonary nodule; J91.8 Pleural effusion in other conditions classified elsewhere; I10 Essential (primary) hypertension; J44.9 Chronic obstructive pulmonary disease, unspecified; F17.200 Nicotine dependence, unspecified, uncomplicated; F19.90 Other psychoactive substance use, unspecified, uncomplicated; R11.0 Nausea; M54.5 Low back pain; Z72.89 Other problems related to lifestyle; Z86.73 Personal history of transient ischemic attack (TIA), and cerebral infarction without residual deficits; Z79.899 Other long term (current) drug therapy
CPT/HCPCS: 36415; 80053; 82150; 82550; 83690; 84484; 85025; 87040; 93005; 93010; 94640; 96365; 99284

== ENCOUNTER 2017-10-14 17:20 | Outpatient (CLI) ==
[2017-10-13 13:21] VITALS: BMI 19.8
== END 2017-10-14 17:21 | disposition home or self-care (01) ==
LOC: AMBL 17:20
PROVIDERS: ATTEND Emergency Medicine
DX: R06.9 Unspecified abnormalities of breathing (principal); J90 Pleural effusion, not elsewhere classified; R91.8 Other nonspecific abnormal finding of lung field; I49.3 Ventricular premature depolarization

== ENCOUNTER 2017-11-14 08:15 | Outpatient (CLI) ==
[2017-11-14 08:30] VITALS: BMI 19.5
== END 2017-11-14 08:16 | disposition home or self-care (01) ==
LOC: AMBL 08:15
PROVIDERS: ATTEND Internal Medicine
DX: R07.9 Chest pain, unspecified (principal); R05 Cough; R00.2 Palpitations; R06.2 Wheezing; R09.89 Other specified symptoms and signs involving the circulatory and respiratory systems

== ENCOUNTER 2017-11-14 08:25 | Emergency (ER) ==
[2017-11-14 08:30] VITALS: BP 113/80; TEMP 99.1; BMI 19.5
[2017-11-14] MEDS ORDERED: DUONEB NEB STA (08:50)
[2017-11-14] MEDS ORDERED: PREDNISONE PO STA (08:51)
[2017-11-14 09:11] LABS: BASOPHILS % (AUTO) 0.6 % (0.0-3.0); HEMATOCRIT 36.6 % (42.0-52.0); HEMOGLOBIN 11.6 g/dl (14.0-18.0); IMMATURE GRANULOCYTE % (AUTO) 0.3 % (0.0-5.0); LYMPHOCYTES # (AUTO) 1.1 K/uL (0.60-3.4); LYMPHOCYTES % (AUTO) 36.4 (10.0-50.0); MEAN CORPUSCULAR HEMOGLOBIN 24.5 pg (27.0-31.0); MEAN CORPUSCULAR HGB CONC 31.7 (31.8-35.4); MEAN CORPUSCULAR VOLUME 77.2 fl (80.0-94.0); MONOCYTES # (AUTO) 0.4 K/uL (0.4-2.0); MONOCYTES % (AUTO) 12.7 (0-10); NEUTROPHILS # (AUTO) 1.5 K/ul (2.0-6.9); PLATELET COUNT 463 10^3/uL (140-440); RED BLOOD COUNT 4.74 10^6/ul (4.70-6.10); WHITE BLOOD COUNT 3.08 K/ul (4.2-10.2)
[2017-11-14 09:20] LABS: ANISOCYTOSIS 1+ (NOT PRESENT)
--- NOTE | 2017-11-14 09:25 | ED.PDOC ---
General ED Provider: Dr. GARY KATHLEEN Chief Complaint: Respiratory Complaint Stated Complaint: cough, congestion Time Seen by Physician: 08:30 Mode of Arrival: Ambulance Information Source: Patient Exam Limitations: No limitations Primary Care Provider: GIOVANNI SIDHU Nursing and Triage Documentation Reviewed and Agree: Yes Respiratory Complaint Exam - Respiratory Complaint/Exam Onset/Duration: 2 days Symptoms Are: Still present Timing: Constant Initial Severity: Moderate Current Severity: Moderate Location: Chest Character: Reports: Non-productive cough Aggravating: Reports: None Alleviating: Reports: Bronchodilators Associated Signs and Symptoms: Reports: Nasal congestion. Denies: Rapid breathing, Dyspnea, Fever, Chills, Chest pain, Pleuritic chest pain, Wheezing, Hemoptysis, Dizziness, Calf pain, Calf swelling, Edema, URI, Hoarseness, Sinus discomfort, Vomiting, Sore throat, Weight loss, Decreased oral intake, Increased thirst, Increased appetite, Increased urination Related History: Reports: Similar episode History of Healthcare-Acquired Pneumonia: No Related Surgical History: Reports: None Pulmonary Embolism Risk Factors: Smoking Cardiac Risk Factors: Reports: Smoking, Hypertension Pseudomonas Risk Factors: Reports: Chronic Lung Disease Status Asthmaticus Risk Factors: Reports: None Home Oxygen Use: No Recent Stress Test: No Recent Echo/LV Function: No Current Antibiotic Use: No Current Asthma Medication Use: No Respiratory Distress: None Inadequate Respiratory Effort: No Dysphagia Present: No Stridor Present: No JVD Present: No Retractions: Not Present Diminished Breath Sounds: No Sinus Tenderness: None Grunting Respirations: No Kussmaul Respirations: No Differential Diagnoses: Pneumonia, Bronchitis Review of Systems - Review Of Systems Constitutional: Reports: No symptoms Eyes: Reports: No symptoms Ears, Nose, Mouth, Throat: Reports: No symptoms Respiratory: Reports: Cough Cardiac: Reports: No symptoms GI: Reports: No symptoms : Reports: No symptoms Musculoskeletal: Reports: No symptoms Skin: Reports: No symptoms Neurological: Reports: No symptoms Endocrine: Reports: No symptoms Hematologic/Lymphatic: Reports: No symptoms All Other Systems: Reviewed and Negative Past Medical History - Past Medical History Previously Healthy: Yes Endocrine: Reports: None Cardiovascular: Reports: Hypertension Respiratory: Reports: COPD Hematological: Reports: None Gastrointestinal: Reports: GERD Genitourinary: Reports: None Neuro/Psych: Reports: TIA Musculoskeletal: Reports: Arthritis, Joint Pain (oa) Cancer: Reports: None Other Pertinent Past Medical History: Alcoholism drinks 1/2 pint every 3 days. - Surgical History General Surgical History: Reports: Orthopedic ( right knee 2015) - Family History Family History: Reports: None - Social History Smoking Status: Current every day smoker, Light tobacco smoker Hx Substance Use: Yes Alcohol Screening: Occasionally - Immunizations Influenza Vaccine within 12 Months: No Pneumococcal Vaccine up to Date: No Physical Exam - Physical Exam Appearance: Well-appearing, No pain distress, Well-nourished Eyes: JEREMY, EOMI, Conjunctiva clear ENT: Ears normal, Nose normal, Oropharynx normal Respiratory: Airway patent, Breath sounds clear, Breath sounds equal, Respirations nonlabored Cardiovascular: RRR, Pulses normal, No rub, No murmur GI/: Soft, Nontender, No masses, Bowel sounds normal, No Organomegaly Musculoskeletal: Normal strength, ROM intact, No edema, No calf tenderness Skin: Warm, Dry, Normal color Neurological: Sensation intact, Motor intact, Reflexes intact, Cranial nerves intact, Alert, Oriented Psychiatric: Affect appropriate, Mood appropriate Critical Care Note - Critical Care Note Total Time (mins): 0 Course - Course Hematology/Chemistry: 11/14/17 09:05 Orders, Labs, Meds: Lab Review 11/14/17 09:05 WBC 3.08 L RBC 4.74 Hgb 11.6 L Hct 36.6 L MCV 77.2 L MCH 24.5 L MCHC 31.7 L RDW Coeff of Ti 20.1 H Plt Count 463 H Immature Gran % (Auto) 0.3 Neut % (Auto) 50.0 Lymph % (Auto) 36.4 Bell % (Auto) 12.7 H Eos % (Auto) 0.0 Baso % (Auto) 0.6 Immature Gran # (Auto) 0.0 Neut # 1.5 L Lymph # 1.1 Bell # 0.4 Eos # 0.0 Baso # 0.0 Anisocytosis Pending Orders Category Date Time Status NEBULIZER TREATMENT Stat CARDIO 11/14/17 08:50 Ordered CBC W/ AUTO DIFF Stat LAB 11/14/17 09:05 Results COMPREHENSIVE METABOLIC PANEL Stat LAB 11/14/17 09:05 Received RBC MORPHOLOGY Stat LAB 11/14/17 09:05 Results Ipratropium/Albuterol Neb [Duoneb] MEDS 11/14/17 08:50 Discontinued 1 vial NEB ONCE STA Prednisone MEDS 11/14/17 08:51 Discontinued 40 mg PO ONCE STA CHEST, 2 VIEWS PA & LAT Stat RADS 11/14/17 08:50 Ordered Medications Discontinued Medications Generic Name Dose Route Start Last Admin Trade Name Rosa PRN Reason Stop Dose Admin Albuterol/Ipratropium 1 vial 11/14/17 08:50 Duoneb NEB 11/14/17 08:51 ONCE STA Prednisone 40 mg 11/14/17 08:51 11/14/17 09:03 Prednisone PO 11/14/17 08:52 40 mg ONCE STA Administration Vital Signs: Temp Pulse Resp BP Pulse Ox 11/14/17 08:25 99.1 F 118 H 20 113/80 95 Departure - Departure Time of Disposition: 09:34 (with nurse at bedside i discussed anemia and high protein levels , 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 NEED FOR ELECTROPHORESIS DISCUSSED ) Disposition: HOME SELF-CARE Discharge Problem: Bronchitis Instructions: Acute Bronchitis (ED) Condition: Good Pt referred to PMD for follow-up: Yes Additional Instructions: Please call your Family Physician as soon as possible to schedule a follow-up appointment. Allergies/Adverse Reactions: Allergies No Known Allergies Allergy (Verified 11/14/17 08:31) Home Medications: Ambulatory Orders Albuterol Sulfate [Proair Hfa] 2 puff IH Q4H PRN 10/04/16 Amlodipine Besylate [Norvasc] 10 mg PO DAILY 02/07/17 Omeprazole [Prilosec] 20 mg PO QDAC 10/13/17 Disposition Discussed With: Patient
[2017-11-14 09:33] LABS: ALBUMIN 3.5 g/dL (3.4-5.0); ALBUMIN/GLOBULIN RATIO 0.66; ANION GAP 20.3; BILIRUBIN,TOTAL 0.44 mg/dL (0.00-1.20); CALCIUM 9.8 mg/dL (8.2-10.2); POTASSIUM 3.3 mmol/L (3.5-5.1); TOTAL PROTEIN 8.8 g/dL (5.8-8.1)
[2017-11-14] MEDS ORDERED: ZITHROMAX PO STA (09:41)
--- NOTE | 2017-11-14 09:56 | DI ---
EXAM: PA and lateral views of the chest HISTORY: Cough. COMPARISON: Chest x-ray 10/13/[address] chest 10/14/2013 FINDINGS: The cardiomediastinal silhouette is normal. There is no pneumothorax. There is hazy groun d-glass and interstitial thickening throughout the right lung with pleural thickening and right pleur al effusion. The left lung is mildly hyperinflated. The osseous structures are unremarkable. IMPRESSION: Right pleural effusion and diffuse pleural thickening is relatively unchanged from prior CT. Diffuse circumferential thickening and pleural interstitial ground-glass throughout the right lung is stable. The osseous structures are unchanged.
== END 2017-11-14 10:05 | disposition home or self-care (01) ==
LOC: ED 08:25
DX: J20.9 Acute bronchitis, unspecified (principal); D64.9 Anemia, unspecified; R71.8 Other abnormality of red blood cells; I10 Essential (primary) hypertension; F17.210 Nicotine dependence, cigarettes, uncomplicated; F10.20 Alcohol dependence, uncomplicated
CPT/HCPCS: 36415; 80053; 85008; 85025; 94640; 99284

== ENCOUNTER 2017-12-28 12:38 | Outpatient (CLI) ==
[2017-12-28 13:05] VITALS: BMI 19.6
== END 2017-12-28 12:39 | disposition critical access hospital (66) ==
LOC: AMBL 12:38
PROVIDERS: ATTEND Internal Medicine
DX: R10.9 Unspecified abdominal pain (principal); M25.511 Pain in right shoulder; C80.1 Malignant (primary) neoplasm, unspecified

== ENCOUNTER 2017-12-28 12:55 | Emergency (ER) ==
[2017-12-28 13:05] VITALS: BP 108/69; TEMP 98; BMI 19.6
[2017-12-28] MEDS ORDERED: DUONEB NEB STA (13:38)
--- NOTE | 2017-12-28 13:45 | CT ---
EXAM: CT scan of the abdomen and pelvis without contrast HISTORY: Pain , right-sided, since liver biopsy 6 weeks ago TECHNIQUE: Imaging of the abdomen pelvis was performed without contrast. 3 mm thin axial images and coronal and sagittal reconstructions were provided for interpretation. Comparison 08/05/2017 CT scan of the abdomen and pelvis. FINDINGS: The evaluation was limited without intravenous contrast. There is an ill-defined low density oval lesion seen within the anterior right lobe of the liver. Th e lesion measures 4.5 cm AP, 3.2 cm transverse. The lesion is seen on axial image number 48. There i s an additional ill-defined lesion seen more inferiorly in the right lobe of the liver seen on axial image #75 measuring 2.8 cm AP maximum. There is no evidence of subcapsular collection. The spleen, p ancreas, adrenal glands and kidneys appear normal. The proximal ureters are normal size. The small and large bowel loops are normal caliber. The helical images obtained through the pelvis demonstrate a normal appearance of the rectum, urinary bladder. There is no free fluid seen within the pelvis. There is a normal appearance of the distal ureters. The appendix appears normal. Emphysematous changes are seen within the lung bases. There is a small right-sided pleural effusion. There is diffuse thickening of the pleural surfaces seen al jose the right lung base. There is additional thickening of the pleura seen along the right heart bor ilsa. Right-sided volume loss is identified. The heart is normal size. There is a small hiatal chip ia. No lytic or blastic lesions are seen within the osseous structures. Stable appearance of mild co mpression deformity of the T10 vertebral body. IMPRESSION: Ill-defined hypodense masses are seen within the liver as described above. Two lesions are identified measuring up to 4.5 cm AP maximum. The findings may represent metastatic foci to the l iver. Correlation with the patients biopsy results is recommended. There is no bowel obstruction. Interval development of diffuse thickening of the pleura on the right hemithorax with formation of a small right pleural effusion. The findings may represent a primary neoplasm of the right pleura such as mesothelioma. The findings were also seen on CT scan of the chest dated 10/14/2017 and appear to be worsening. Pulmonary emphysema.
[2017-12-28] MEDS ORDERED: MORPHINE 2 MG/ML SYRINGE IM STA (14:10)
--- NOTE | 2017-12-28 14:31 | ED.PDOC ---
General ED Provider: Dr. GARY KATHLEEN Chief Complaint: Abdominal Pain Stated Complaint: abdominal pain Time Seen by Physician: 13:00 (possible liver mets seen with entire nursing staff magaly and KERLINE) Mode of Arrival: Stretcher Information Source: Patient Exam Limitations: No limitations Primary Care Provider: GIOVANNI SIDHU Nursing and Triage Documentation Reviewed and Agree: Yes Reviewed sepsis parameters & appropriate labs ordered?: Yes System Inflammatory Response Syndrome: Not Applicable Sepsis Protocol: For patient's 13 years and over: Temp is 96.8 and below OR 101 and greater Pulse >90 BPM Resp >20/minute Acutely Altered Mental Status Are patient's symptoms suggestive of a new infection, such as: -Pneumonia -Skin, Soft Tissue -Endocarditis -UTI -Bone, Joint Infection -Implantable Device -Acute Abdominal Infection -Wound Infection -Meningitis -Blood Stream Catheter Infection -Unknown System Inflammatory Response Syndrome: Not Applicable GI Complaint Exam - Abdominal Pain Complaint/Exam Onset: Gradual Duration: chronic isue worse today liver mets as out pt is being evaluated Symptoms Are: Still present Timing: Intermittent Initial Severity: Moderate Current Severity: Mild Location of Pain: RLQ Character: Reports: Aching Aggravating: Reports: None Alleviating: Reports: None Associated Signs and Symptoms: Denies: Diaphoresis, Fever, Cough, Chest pain, Dizziness, Back pain, Constipation, Blood in stool, Dysuria, Urinary frequency, Decreased urine output, Decreased appetite, Discharge, Nausea, Vomiting, Diarrhea, Decreased activity Related History: Reports: Similar episode AAA Risk Factors: Reports: Hypertension Cardiac Risk Factors: Reports: Hypertension Testicular Torsion Risk Factors: Reports: None Surgical Obstruction Risk Factors: Reports: None Related Surgical History: Reports: None Abdominal Findings: Present: None Differential Diagnoses: Appendicitis, Bowel Obstruction, Constipation, Diverticulitis, Gastroenteritis, Hepatitis, Renal Colic Review of Systems - Review Of Systems Constitutional: Reports: No symptoms Eyes: Reports: No symptoms Ears, Nose, Mouth, Throat: Reports: No symptoms Respiratory: Reports: No symptoms Cardiac: Reports: No symptoms GI: Reports: Abdominal pain : Reports: No symptoms Musculoskeletal: Reports: No symptoms Skin: Reports: No symptoms Neurological: Reports: No symptoms Endocrine: Reports: No symptoms Hematologic/Lymphatic: Reports: No symptoms All Other Systems: Reviewed and Negative Past Medical History - Past Medical History Previously Healthy: Yes Endocrine: Reports: None Cardiovascular: Reports: Hypertension Respiratory: Reports: COPD Hematological: Reports: None Gastrointestinal: Reports: GERD Genitourinary: Reports: None Neuro/Psych: Reports: TIA Musculoskeletal: Reports: Arthritis, Joint Pain (oa) Cancer: Reports: None Other Pertinent Past Medical History: Alcoholism drinks 1/2 pint every 3 days. - Surgical History General Surgical History: Reports: Orthopedic ( right knee 2015) - Family History Family History: Reports: None - Social History Smoking Status: Current every day smoker, Heavy tobacco smoker Hx Substance Use: Yes ("weed every once in a while") Alcohol Screening: Occasionally - Immunizations Influenza Vaccine within 12 Months: No Pneumococcal Vaccine up to Date: No Physical Exam - Physical Exam Appearance: Well-appearing, No pain distress, Well-nourished Eyes: JEREMY, EOMI, Conjunctiva clear ENT: Ears normal, Nose normal, Oropharynx normal Respiratory: Airway patent, Breath sounds clear, Breath sounds equal, Respirations nonlabored Cardiovascular: RRR, Pulses normal, No rub, No murmur GI/: Soft, Nontender, No masses, Bowel sounds normal, No Organomegaly Musculoskeletal: Normal strength, ROM intact, No edema, No calf tenderness Skin: Warm, Dry, Normal color Neurological: Sensation intact, Motor intact, Reflexes intact, Cranial nerves intact, Alert, Oriented Psychiatric: Affect appropriate, Mood appropriate Interpretation - Radiology Interpretation Radiology Interpretation By: Radiologist Radiology Results: Positive (liver massor mets) Critical Care Note - Critical Care Note Total Time (mins): 0 Course - Course Hematology/Chemistry: 12/28/17 13:30 12/28/17 13:30 Orders, Labs, Meds: Lab Review 12/28/17 12/28/17 13:30 13:30 WBC 10.55 H RBC 4.08 L Hgb 10.1 L Hct 32.2 L MCV 78.9 L MCH 24.8 L MCHC 31.4 L RDW Coeff of Ti 18.3 H Plt Count 629 H Immature Gran % (Auto) 0.3 Neut % (Auto) 80.2 Lymph % (Auto) 10.9 Sevier % (Auto) 7.7 Eos % (Auto) 0.5 Baso % (Auto) 0.4 Immature Gran # (Auto) 0.0 Neut # 8.5 H Lymph # 1.2 Sevier # 0.8 Eos # 0.1 Baso # 0.0 Sodium 137 Potassium 3.8 Chloride 99 Carbon Dioxide 24 Anion Gap 17.8 BUN 13 Creatinine 0.96 Estimated GFR (MDRD) 96.00 BUN/Creatinine Ratio 13.54 Glucose 120 H Calcium 9.9 Total Bilirubin 0.6 AST 22 ALT 11 L Alkaline Phosphatase 136 H Total Protein 8.2 H Albumin 2.6 L Globulin 5.6 Albumin/Globulin Ratio 0.46 Orders Category Date Time Status NEBULIZER TREATMENT Stat CARDIO 12/28/17 13:38 Ordered CBC W/ AUTO DIFF Stat LAB 12/28/17 13:17 Ordered COMPREHENSIVE METABOLIC PANEL Stat LAB 12/28/17 13:17 Ordered URINALYSIS C & S IF INDICATED Stat LAB 12/28/17 13:17 Uncollected Ipratropium/Albuterol Neb [Duoneb] MEDS 12/28/17 13:38 Stat 1 vial NEB ONCE STA Morphine Sulfate [Morphine 2 mg/ml Syringe] MEDS 12/28/17 14:10 Discontinued 2 mg IM ONCE STA CT ABDOMEN/PELVIS WO CONTRAST Stat RADS 12/28/17 13:17 Taken Medications Discontinued Medications Generic Name Dose Route Start Last Admin Trade Name Richq PRN Reason Stop Dose Admin Albuterol/Ipratropium 1 vial 12/28/17 13:38 12/28/17 13:51 Duoneb NEB 12/28/17 13:39 1 vial ONCE STA Administration Morphine Sulfate 2 mg 12/28/17 14:10 12/28/17 14:18 Morphine 2 Mg/Ml Syringe IM 12/28/17 14:11 2 mg ONCE STA Administration Vital Signs: Temp Pulse Resp BP Pulse Ox 12/28/17 12:56 98 F 112 H 20 108/69 95 Departure - Departure Time of Disposition: 14:31 Disposition: HOME SELF-CARE Discharge Problem: Abdominal pain, Abdominal pain Liver malignancy Qualifiers: Liver malignancy type: unspecified liver malignancy Qualified Code(s): C22.9 - Malignant neoplasm of liver, not specified as primary or secondary Instructions: Abdominal Pain (ED) Condition: Good Pt referred to PMD for follow-up: Yes IPMP verified?: Yes Additional Instructions: Please call your Family Physician as soon as possible to schedule a follow-up appointment. Allergies/Adverse Reactions: Allergies No Known Allergies Allergy (Verified 12/28/17 13:05) Home Medications: Ambulatory Orders Albuterol Sulfate [Proair Hfa] 2 puff IH Q4H PRN 10/04/16 Amlodipine Besylate [Norvasc] 10 mg PO DAILY 02/07/17 Omeprazole [Prilosec] 20 mg PO QDAC 10/13/17 Cyclobenzaprine HCl [Flexeril] 10 mg PO BID 12/28/17
== END 2017-12-28 14:45 | disposition home or self-care (01) ==
LOC: ED 12:55
DX: R10.9 Unspecified abdominal pain (principal); C22.9 Malignant neoplasm of liver, not specified as primary or secondary; I10 Essential (primary) hypertension; F17.210 Nicotine dependence, cigarettes, uncomplicated; F10.20 Alcohol dependence, uncomplicated; Z86.73 Personal history of transient ischemic attack (TIA), and cerebral infarction without residual deficits
CPT/HCPCS: 36415; 80053; 85025; 94640; 96372; 99283